=== PATIENT | female | born 1945 | race Caucasian/White ===

== ENCOUNTER 2018-05-15 14:17 | Inpatient (IN) ==
[2018-05-15] MEDS ORDERED: DILTIAZEM 50 MG/10 ML VIAL IV STA ×2 (14:37→15:27)
[2018-05-15] MEDS ORDERED: POTASSIUM CHLORIDE 20 MEQ TABLET PO STA (14:41)
[2018-05-15] MEDS: DILTIAZEM INJ 100 MG in SODIUM CHLORIDE 0.9% 100 ML IV SCH ×2 (14:51→22:34)
[2018-05-15] MEDS ORDERED: SODIUM CHLORIDE 0.9% 1,000 ML IV SCH (15:00)
[2018-05-15] MEDS ORDERED: MAGNESIUM SULF RIDER 2 GM in PREMIX 1 EACH IV ONE (16:45)
[2018-05-15] MEDS ORDERED: MAGNESIUM SULF RIDER 4 GM in PREMIX 1 EACH IV PRN (16:46)
[2018-05-15] MEDS ORDERED: MAGNESIUM SULF RIDER 2 GM in PREMIX 1 EACH IV PRN (16:46)
[2018-05-15] MEDS ORDERED: POTASSIUM CHLORIDE 20 MEQ TABLET PO ONE (16:48)
[2018-05-15] MEDS ORDERED: SODIUM CHLORIDE 0.9% 500 ML IV ONE (16:53)
[2018-05-15] MEDS ORDERED: ACETAMINOPHEN 325 MG TABLET PO PRN (17:08)
[2018-05-15] MEDS ORDERED: ONDANSETRON 4 MG/2 ML VIAL IV PRN (17:08)
[2018-05-15 18:05] LABS: PT Patient Result 10.9 SECS; Partial Thromboplastin Time 32.7 SECS (0-40)
[2018-05-15] MEDS: NICOTINE 21 MG/24 HR PATCH TRANSDERM SCH (18:17)
[2018-05-15] MEDS: PANTOPRAZOLE 40 MG TABLET PO SCH (18:18)
[2018-05-15] MEDS: SODIUM CHLORIDE 0.9% 1,000 ML IV SCH (18:18)
[2018-05-15] MEDS ORDERED: METOPROLOL TARTRATE 5 MG/5 ML VIAL IV ONE (18:20)
[2018-05-15 18:27] LABS: Thyroid Stimulating Hormone 0.39 uIU/ml (0.358-3.74)
[2018-05-15] MEDS: IPRATROPIUM 500 MCG/2.5 ML NEB RESP TX SCH (18:30)
[2018-05-15] MEDS: traMADol 50 MG TABLET PO PRN (20:47)
[2018-05-15] MEDS: ZALEPLON 5 MG CAPSULE PO PRN (20:50)
[2018-05-15] MEDS: ASCORBIC ACID 500 MG TABLET PO SCH (20:50)
[2018-05-15] MEDS: APIXABAN 5 MG TABLET PO SCH (20:50)
[2018-05-15] MEDS: METOPROLOL TARTRATE 50 MG TABLET PO SCH (20:51)
[2018-05-15] MEDS ORDERED: FLUOROURACIL TOP SCH (21:00)
[2018-05-15] MEDS: ALBUTEROL/IPRATROPIUM 3 ML NEB RESP TX PRN (22:55)
[2018-05-16] MEDS: SODIUM CHLORIDE 0.9% 1,000 ML IV SCH ×2 (01:52→06:28)
[2018-05-16] MEDS: POTASSIUM CHLORIDE RIDER 10 MEQ in PREMIX 1 EACH IV PRN ×5 (02:06→06:26)
[2018-05-16] MEDS: ALBUTEROL/IPRATROPIUM 3 ML NEB RESP TX PRN ×3 (03:37→23:00)
[2018-05-16 05:57] LABS: Basophils % 0.6 % (0.0-0.8); Eosinophils # 0.2 10*3/uL (0.0-0.87); Hematocrit 34.2 VOL% (35.7-47.0); Hemoglobin 10.9 GM/DL (12.0-16.0); Immature Granulocytes % 0.4 %; Immature Granulocytes Absolute 0.03 #; Lymphocytes # 1.9 10*3/uL (1.4-4.0); Lymphocytes % 27.7 % (21.3-54.2); Mean Corpuscular HGB Conc 31.9 GM/DL (32-36); Mean Corpuscular Hemoglobin 33 PG (27-34); Mean Platelet Volume 8.9 FL (9.6-12.0); Monocytes # 0.6 10*3/uL (0.11-0.8); Monocytes % 8.3 % (1.7-12.7); Neutrophils # 4.2 10*3/uL (1.4-7.4); Platelet Count 220 T/CUMM (130-400); Red Blood Count 3.29 MC/CUMM (3.8-5.5); Red Cell Distribution Width 15.6 % (9.3-17.3)
[2018-05-16 06:16] LABS: Calcium 7.8 MG/DL (8.5-10.1); Osmolality,Calculated 276.4 MOS/KG (273-304); Potassium 4.7 MMOL/L (3.5-5.1); Risk Ratio 1.41; VLDL CHOLESTEROL 14.6 MG/DL
[2018-05-16] MEDS: IPRATROPIUM 500 MCG/2.5 ML NEB RESP TX SCH ×4 (07:30→19:02)
[2018-05-16] MEDS: APIXABAN 5 MG TABLET PO SCH (08:31)
[2018-05-16] MEDS: ASPIRIN EC 81 MG TABLET PO SCH (08:31)
[2018-05-16] MEDS: PANTOPRAZOLE 40 MG TABLET PO SCH (08:31)
[2018-05-16] MEDS: ASCORBIC ACID 500 MG TABLET PO SCH ×2 (08:32→20:37)
[2018-05-16] MEDS: SIMVASTATIN 80 MG TABLET PO SCH (08:32)
[2018-05-16] MEDS: NICOTINE 21 MG/24 HR PATCH TRANSDERM SCH (08:32)
[2018-05-16] MEDS: METOPROLOL TARTRATE 50 MG TABLET PO SCH ×2 (08:32→20:37)
[2018-05-16] MEDS: FUROSEMIDE 20 MG TABLET PO SCH (13:33)
[2018-05-16 15:05] LABS: Apearance,Urine CLEAR (Clear); Bacteria,Urine Occasional /HPF (Few); Bilirubin,Urine Negative (Negative); Blood, Urine Negative (Negative); Glucose,Urine (UA) Negative (Negative); Hyaline Casts,Urine 1 /LPF (0-3); Ketones,Urine 20 mg/dL (Negative); Mucus,Urine Occasional /LPF (Occasional); Nitrite,Urine Negative (Negative); Protein,Urine 30 MG/DL; RBC,Urine 9 /HPF (0-4); Squamous Epithelial Cell,Urine Occasional /HPF (0-10); Urine Color Amber (Yellow); Urine Specific Gravity 1.024 (1.001-1.035); WBC,Urine 10 /HPF (0-6)
[2018-05-16] MEDS ORDERED: ALBUTEROL 2.5 MG/3 ML NEB RESP TX PRN (19:00)
[2018-05-16] MEDS: ZALEPLON 5 MG CAPSULE PO PRN (20:37)
[2018-05-16] MEDS: CYCLOBENZAPRINE 10 MG TABLET PO PRN (20:37)
[2018-05-17 03:37] LABS: Basophils % 0.4 % (0.0-0.8); Eosinophils # 0.3 10*3/uL (0.0-0.87); Eosinophils % 3.6 % (0.00-10.9); Hematocrit 35.4 VOL% (35.7-47.0); Hemoglobin 11.8 GM/DL (12.0-16.0); Immature Granulocytes % 0.3 %; Immature Granulocytes Absolute 0.02 #; Lymphocytes # 1.7 10*3/uL (1.4-4.0); Lymphocytes % 24.8 % (21.3-54.2); Mean Corpuscular HGB Conc 33.3 GM/DL (32-36); Mean Corpuscular Hemoglobin 34 PG (27-34); Mean Corpuscular Volume 100.9 FL (87-102); Mean Platelet Volume 9.6 FL (9.6-12.0); Monocytes # 0.5 10*3/uL (0.11-0.8); Monocytes % 6.8 % (1.7-12.7); Neutrophils # 4.5 10*3/uL (1.4-7.4); Neutrophils % 64.1 % (38.7-73.9); Platelet Count 233 T/CUMM (130-400); Red Blood Count 3.51 MC/CUMM (3.8-5.5); Red Cell Distribution Width 15.4 % (9.3-17.3)
[2018-05-17 03:54] LABS: Calcium 8.1 MG/DL (8.5-10.1); Osmolality,Calculated 276.4 MOS/KG (273-304); Potassium 4.1 MMOL/L (3.5-5.1)
[2018-05-17] MEDS: IPRATROPIUM 500 MCG/2.5 ML NEB RESP TX SCH ×4 (07:04→19:15)
[2018-05-17] MEDS: ASPIRIN EC 81 MG TABLET PO SCH (08:56)
[2018-05-17] MEDS: NICOTINE 21 MG/24 HR PATCH TRANSDERM SCH (08:56)
[2018-05-17] MEDS: METOPROLOL TARTRATE 50 MG TABLET PO SCH ×2 (08:56→20:24)
[2018-05-17] MEDS: SIMVASTATIN 80 MG TABLET PO SCH (08:56)
[2018-05-17] MEDS: PANTOPRAZOLE 40 MG TABLET PO SCH (08:57)
[2018-05-17] MEDS: FUROSEMIDE 20 MG TABLET PO SCH (08:57)
[2018-05-17] MEDS: ENOXAPARIN 40 MG/0.4 ML SYRINGE SUBCUT SCH (08:57)
[2018-05-17] MEDS: ASCORBIC ACID 500 MG TABLET PO SCH ×2 (08:57→20:23)
[2018-05-17] MEDS: predniSONE 20 MG TABLET PO SCH (09:00)
[2018-05-17] MEDS: BUDESONIDE/FORMOTEROL 80-4.5 INHALER 6.9 GM INH SCH ×2 (10:01→20:27)
[2018-05-17] MEDS: AMPICILLIN 500 MG CAPSULE PO SCH ×3 (13:14→20:25)
[2018-05-17] MEDS: ZALEPLON 5 MG CAPSULE PO PRN (20:23)
[2018-05-17] MEDS: traMADol 50 MG TABLET PO PRN (20:23)
[2018-05-17] MEDS: CYCLOBENZAPRINE 10 MG TABLET PO PRN (20:24)
[2018-05-17] MEDS: ALBUTEROL/IPRATROPIUM 3 ML NEB RESP TX PRN (23:32)
[2018-05-18 02:47] LABS: Basophils % 0.2 % (0.0-0.8); Eosinophils % 0.2 % (0.00-10.9); Hematocrit 33.7 VOL% (35.7-47.0); Immature Granulocytes % 0.6 %; Immature Granulocytes Absolute 0.03 #; Lymphocytes % 19.2 % (21.3-54.2); Mean Corpuscular HGB Conc 32.6 GM/DL (32-36); Mean Corpuscular Hemoglobin 33 PG (27-34); Mean Corpuscular Volume 102.1 FL (87-102); Mean Platelet Volume 10.2 FL (9.6-12.0); Monocytes # 0.3 10*3/uL (0.11-0.8); Neutrophils % 73.8 % (38.7-73.9); Platelet Count 188 T/CUMM (130-400); Red Cell Distribution Width 14.9 % (9.3-17.3); White Blood Count 5.4 T/CUMM (4-12)
[2018-05-18 02:57] LABS: Calcium 7.9 MG/DL (8.5-10.1); Osmolality,Calculated 276.5 MOS/KG (273-304); Potassium 4.1 MMOL/L (3.5-5.1)
[2018-05-18] MEDS: ALBUTEROL/IPRATROPIUM 3 ML NEB RESP TX PRN ×2 (03:51→23:31)
[2018-05-18 04:08] LABS: Macrocytosis 3+; Platelet Estimate Normal
[2018-05-18] MEDS: IPRATROPIUM 500 MCG/2.5 ML NEB RESP TX SCH ×4 (07:36→19:25)
[2018-05-18] MEDS: ASCORBIC ACID 500 MG TABLET PO SCH ×2 (08:46→20:07)
[2018-05-18] MEDS: PANTOPRAZOLE 40 MG TABLET PO SCH (08:47)
[2018-05-18] MEDS: FUROSEMIDE 20 MG TABLET PO SCH (08:47)
[2018-05-18] MEDS: ASPIRIN EC 81 MG TABLET PO SCH (08:47)
[2018-05-18] MEDS: AMPICILLIN 500 MG CAPSULE PO SCH ×4 (08:47→20:06)
[2018-05-18] MEDS: METOPROLOL TARTRATE 50 MG TABLET PO SCH ×2 (08:47→20:07)
[2018-05-18] MEDS: SIMVASTATIN 80 MG TABLET PO SCH (08:47)
[2018-05-18] MEDS: predniSONE 20 MG TABLET PO SCH (08:47)
[2018-05-18] MEDS: ENOXAPARIN 40 MG/0.4 ML SYRINGE SUBCUT SCH (08:48)
[2018-05-18] MEDS: NICOTINE 21 MG/24 HR PATCH TRANSDERM SCH (08:48)
[2018-05-18] MEDS: BUDESONIDE/FORMOTEROL 80-4.5 INHALER 6.9 GM INH SCH ×2 (08:54→21:41)
[2018-05-18] MEDS: CYCLOBENZAPRINE 10 MG TABLET PO PRN (20:07)
[2018-05-19 04:10] LABS: Hematocrit 32.4 VOL% (35.7-47.0); Hemoglobin 10.7 GM/DL (12.0-16.0); Immature Granulocytes % 0.4 %; Immature Granulocytes Absolute 0.02 #; Lymphocytes # 1.4 10*3/uL (1.4-4.0); Lymphocytes % 26.9 % (21.3-54.2); Mean Corpuscular Hemoglobin 33 PG (27-34); Mean Platelet Volume 9.1 FL (9.6-12.0); Monocytes # 0.4 10*3/uL (0.11-0.8); Monocytes % 8.4 % (1.7-12.7); Neutrophils # 3.2 10*3/uL (1.4-7.4); Neutrophils % 64.3 % (38.7-73.9); Platelet Count 213 T/CUMM (130-400); Red Blood Count 3.24 MC/CUMM (3.8-5.5); Red Cell Distribution Width 14.9 % (9.3-17.3)
[2018-05-19] MEDS: IPRATROPIUM 500 MCG/2.5 ML NEB RESP TX SCH ×2 (07:33→11:25)
[2018-05-19] MEDS: BUDESONIDE/FORMOTEROL 80-4.5 INHALER 6.9 GM INH SCH (09:22)
[2018-05-19] MEDS: NICOTINE 21 MG/24 HR PATCH TRANSDERM SCH (09:23)
[2018-05-19] MEDS: ENOXAPARIN 40 MG/0.4 ML SYRINGE SUBCUT SCH (09:23)
[2018-05-19] MEDS: AMPICILLIN 500 MG CAPSULE PO SCH ×2 (09:24→13:55)
[2018-05-19] MEDS: predniSONE 20 MG TABLET PO SCH (09:24)
[2018-05-19] MEDS: ASPIRIN EC 81 MG TABLET PO SCH (09:24)
[2018-05-19] MEDS: FUROSEMIDE 20 MG TABLET PO SCH (09:24)
[2018-05-19] MEDS: METOPROLOL TARTRATE 50 MG TABLET PO SCH (09:24)
[2018-05-19] MEDS: ASCORBIC ACID 500 MG TABLET PO SCH (09:24)
[2018-05-19] MEDS: SIMVASTATIN 80 MG TABLET PO SCH (09:24)
[2018-05-19] MEDS: PANTOPRAZOLE 40 MG TABLET PO SCH (09:24)
[2018-05-19] MEDS ORDERED: DILTIAZEM CD 120 MG CAPSULE PO SCH (10:30)
[2018-05-19 12:27] VITALS: BP 132/81
== END 2018-05-19 14:38 | disposition home or self-care (01) | DRG 309 ==
LOC: EDBD → EDUNIT# → N.ED 14:17 → SUATTDRO 15:56 → N.EDINP 15:56 → N.TELES 16:25
PROVIDERS: ADMIT Internal Medicine; ATTEND Family Medicine

== ENCOUNTER 2019-03-23 21:22 | Inpatient (IN) ==
[2019-03-23] MEDS ORDERED: SODIUM CHLORIDE 0.9% 1,000 ML IV STA (21:55)
[2019-03-23 22:41] LABS: Basophils # 0.1 10*3/uL (0.0-0.2); Basophils % 0.3 % (0.0-0.8); Eosinophils # 0.1 10*3/uL (0.0-0.87); Eosinophils % 0.4 % (0.00-10.9); Hematocrit 41.2 VOL% (35.7-47.0); Hemoglobin 12.9 GM/DL (12.0-16.0); Immature Granulocytes % 1.5 %; Immature Granulocytes Absolute 0.23 #; Lymphocytes # 0.8 10*3/uL (1.4-4.0); Lymphocytes % 4.9 % (21.3-54.2); Mean Corpuscular HGB Conc 31.3 GM/DL (32-36); Mean Corpuscular Volume 90.9 FL (87-102); Mean Platelet Volume 9.4 FL (9.6-12.0); Monocytes % 3.2 % (1.7-12.7); Neutrophils % 89.7 % (38.7-73.9); Platelet Count 166 T/CUMM (130-400); Red Blood Count 4.53 MC/CUMM (3.8-5.5); Red Cell Distribution Width 13.8 % (9.3-17.3); White Blood Count 15.6 T/CUMM (4-12)
[2019-03-23 23:09] LABS: Band Neutrophils 3 % (0-10); Eosinophils 1 % (0-10); Lymphocytes 6 % (20-55); Segmented Neutrophils 88 % (50-85); Total Cells Counted 100
[2019-03-23 23:10] LABS: Anisocytosis Slight; Microcytosis Slight; Platelet Estimate Normal
[2019-03-23 23:16] LABS: Albumin 2.9 G/DL (3.4-5.0); Bilirubin,Total 0.6 MG/DL (0.2-1.0); Calcium 8.4 MG/DL (8.5-10.1); Osmolality,Calculated 283.4 MOS/KG (273-304); Total Protein 5.5 G/DL (6.4-8.3)
[2019-03-24] MEDS ORDERED: methylPREDNISolone SOD SUC 125 MG/2 ML VIAL IV STA (00:45)
[2019-03-24] MEDS ORDERED: ALBUTEROL/IPRATROPIUM 3 ML NEB RESP TX STA (00:45)
[2019-03-24 01:34] LABS: ABG Base Excess 7.5 MMOL/L (-2.5-2.5); ABG HCO3 33.9 MMOL/L (20-26); ABG Oxygen Saturation 95.8 % (95-100); ABG PCO2 56.1 MM HG (35-48); ABG PH 7.399 (7.35-7.45); ABG PO2 82.4 MM HG (80-95); ABG TCO2 35.6 MMOL/L (23-27)
[2019-03-24] MEDS ORDERED: GLUCAGON 1 MG VIAL IM PRN (01:51)
[2019-03-24] MEDS ORDERED: BISACODYL 5 MG TABLET PO PRN (01:51)
[2019-03-24] MEDS ORDERED: guaiFENesin/DM ER 600-30 MG TABLET PO PRN (01:51)
[2019-03-24] MEDS ORDERED: diphenhydrAMINE CAP 25 MG CAPSULE PO PRN (01:51)
[2019-03-24] MEDS ORDERED: ACETAMINOPHEN 325 MG TABLET PO PRN (01:51)
[2019-03-24] MEDS ORDERED: ONDANSETRON 4 MG/2 ML VIAL IV PRN (01:51)
[2019-03-24] MEDS ORDERED: NICOTINE 21 MG/24 HR PATCH TRANSDERM PRN (01:51)
[2019-03-24] MEDS ORDERED: DEXTROSE 50% 25 GM/50 ML VIAL IV PRN (01:51)
[2019-03-24] MEDS ORDERED: METOPROLOL TARTRATE 50 MG TABLET PO SCH (02:57)
[2019-03-24] MEDS: FUROSEMIDE 40 MG/4 ML VIAL IV SCH ×3 (03:03→15:02)
[2019-03-24] MEDS: LEVOFLOXACIN INJ 750 MG in PREMIX 1 EACH IV SCH (03:05)
[2019-03-24] MEDS: ATENOLOL 50 MG TABLET PO SCH ×2 (05:40→21:15)
[2019-03-24 05:45] LABS: Basophils % 0.2 % (0.0-0.8); Eosinophils % 0.1 % (0.00-10.9); Hematocrit 40.8 VOL% (35.7-47.0); Hemoglobin 12.7 GM/DL (12.0-16.0); Immature Granulocytes % 0.9 %; Immature Granulocytes Absolute 0.11 #; Lymphocytes # 0.3 10*3/uL (1.4-4.0); Lymphocytes % 2.4 % (21.3-54.2); Mean Corpuscular HGB Conc 31.1 GM/DL (32-36); Mean Corpuscular Volume 90.5 FL (87-102); Mean Platelet Volume 10.1 FL (9.6-12.0); Monocytes % 1.5 % (1.7-12.7); Neutrophils % 94.9 % (38.7-73.9); Platelet Count 168 T/CUMM (130-400); Red Blood Count 4.51 MC/CUMM (3.8-5.5); White Blood Count 12.8 T/CUMM (4-12)
[2019-03-24 06:14] LABS: Lymphocytes 3 % (20-55); Platelet Estimate Adequate; Segmented Neutrophils 94 % (50-85); Total Cells Counted 100
[2019-03-24 06:25] LABS: Albumin 2.9 G/DL (3.4-5.0); Bilirubin,Total 0.8 MG/DL (0.2-1.0); Calcium 8.5 MG/DL (8.5-10.1); Osmolality,Calculated 290.7 MOS/KG (273-304); Total Protein 6.3 G/DL (6.4-8.3)
[2019-03-24] MEDS: ALBUTEROL/IPRATROPIUM 3 ML NEB RESP TX SCH ×3 (07:33→19:01)
[2019-03-24] MEDS: PANTOPRAZOLE 40 MG TABLET PO SCH (08:30)
[2019-03-24] MEDS: DILTIAZEM CD 120 MG CAPSULE PO SCH (08:30)
[2019-03-24] MEDS: GABAPENTIN 100 MG CAPSULE PO SCH ×3 (08:30→21:14)
[2019-03-24] MEDS: INSULIN REGULAR 100 UNIT/ML SUBCUT SCH ×4 (08:31→21:14)
[2019-03-24] MEDS ORDERED: methylPREDNISolone SOD SUC 40 MG/1 ML VIAL IV SCH (09:00)
[2019-03-24] MEDS ORDERED: TIOTROPIUM BROMIDE INH SCH (09:00)
[2019-03-24] MEDS ORDERED: ASPIRIN EC 81 MG TABLET PO SCH (09:00)
[2019-03-24] MEDS: ASPIRIN CHEW 81 MG TABLET PO SCH (16:21)
[2019-03-24] MEDS ORDERED: ENOXAPARIN 80 MG/0.8 ML SYRINGE SUBCUT ONE (16:26)
[2019-03-24] MEDS: methylPREDNISolone SOD SUC 40 MG/1 ML VIAL IV SCH (17:30)
[2019-03-24] MEDS: SIMVASTATIN 40 MG TABLET PO SCH (21:13)
[2019-03-24] MEDS: ENOXAPARIN 80 MG/0.8 ML SYRINGE SUBCUT SCH (21:15)
[2019-03-25] MEDS: ALBUTEROL/IPRATROPIUM 3 ML NEB RESP TX SCH ×4 (01:00→19:00)
[2019-03-25] MEDS: methylPREDNISolone SOD SUC 40 MG/1 ML VIAL IV SCH ×3 (01:08→18:25)
[2019-03-25] MEDS: LEVOFLOXACIN INJ 750 MG in PREMIX 1 EACH IV SCH (01:10)
[2019-03-25 04:49] LABS: Basophils % 0.2 % (0.0-0.8); Hematocrit 40.1 VOL% (35.7-47.0); Hemoglobin 12.3 GM/DL (12.0-16.0); Immature Granulocytes % 1.1 %; Immature Granulocytes Absolute 0.14 #; Lymphocytes # 0.7 10*3/uL (1.4-4.0); Lymphocytes % 5.3 % (21.3-54.2); Mean Corpuscular HGB Conc 30.7 GM/DL (32-36); Mean Corpuscular Volume 91.1 FL (87-102); Mean Platelet Volume 9.8 FL (9.6-12.0); Monocytes % 2.3 % (1.7-12.7); Neutrophils % 91.1 % (38.7-73.9); Platelet Count 175 T/CUMM (130-400); Red Cell Distribution Width 13.7 % (9.3-17.3); White Blood Count 12.7 T/CUMM (4-12)
[2019-03-25 05:14] LABS: Calcium 9.2 MG/DL (8.5-10.1); Osmolality,Calculated 291.5 MOS/KG (273-304)
[2019-03-25 05:39] LABS: Band Neutrophils 2 % (0-10); Lymphocytes 4 % (20-55); Platelet Estimate Adequate; Segmented Neutrophils 92 % (50-85); Total Cells Counted 100
[2019-03-25] MEDS ORDERED: SODIUM CHLORIDE 0.9% 1,000 ML IV SCH ×2 (08:00→16:39)
[2019-03-25] MEDS: ENOXAPARIN 80 MG/0.8 ML SYRINGE SUBCUT SCH ×2 (08:49→10:37)
[2019-03-25] MEDS: INSULIN REGULAR 100 UNIT/ML SUBCUT SCH ×4 (08:49→21:46)
[2019-03-25] MEDS: DILTIAZEM CD 120 MG CAPSULE PO SCH (08:50)
[2019-03-25] MEDS: GABAPENTIN 100 MG CAPSULE PO SCH ×3 (08:50→22:03)
[2019-03-25] MEDS: PANTOPRAZOLE 40 MG TABLET PO SCH (08:50)
[2019-03-25] MEDS: ASPIRIN CHEW 81 MG TABLET PO SCH (08:50)
[2019-03-25] MEDS: ATENOLOL 50 MG TABLET PO SCH ×2 (08:50→22:03)
[2019-03-25] MEDS ORDERED: POTASSIUM CHLORIDE 20 MEQ/15 ML UDCUP PO ONE (13:11)
[2019-03-25] MEDS ORDERED: LIDOCAINE 1% 20 ML VIAL ONE (14:36)
[2019-03-25] MEDS ORDERED: diphenhydrAMINE 50 MG/1 ML VIAL ONE (14:38)
[2019-03-25] MEDS ORDERED: TIROFIBAN 5,000 MCG/100 ML PREMIX IV ONE (15:16)
[2019-03-25] MEDS ORDERED: HEPARIN 5,000 UNIT/1 ML VIAL ONE (15:21)
[2019-03-25] MEDS ORDERED: TIROFIBAN 5,000 MCG/100 ML PREMIX IV SCH (15:25)
[2019-03-25] MEDS ORDERED: TICAGRELOR 90 MG TABLET ONE (16:11)
[2019-03-25] MEDS: MORPHINE 4 MG/1 ML VIAL IV PRN ×2 (18:55→22:55)
[2019-03-25 18:58] LABS: Troponin I < 0.015 NG/ML (0.00-0.045)
[2019-03-25] MEDS: SIMVASTATIN 40 MG TABLET PO SCH (22:03)
[2019-03-25] MEDS: TICAGRELOR 90 MG TABLET PO SCH (22:03)
[2019-03-26] MEDS: ALBUTEROL/IPRATROPIUM 3 ML NEB RESP TX SCH ×4 (00:05→19:05)
[2019-03-26 01:09] LABS: Troponin I < 0.015 NG/ML (0.00-0.045)
[2019-03-26] MEDS: methylPREDNISolone SOD SUC 40 MG/1 ML VIAL IV SCH ×3 (02:26→16:37)
[2019-03-26] MEDS: LEVOFLOXACIN INJ 750 MG in PREMIX 1 EACH IV SCH (02:26)
[2019-03-26] MEDS: MORPHINE 4 MG/1 ML VIAL IV PRN (04:18)
[2019-03-26 04:52] LABS: Basophils % 0.2 % (0.0-0.8); Hematocrit 38.1 VOL% (35.7-47.0); Hemoglobin 11.8 GM/DL (12.0-16.0); Immature Granulocytes % 2.2 %; Immature Granulocytes Absolute 0.35 #; Lymphocytes # 0.6 10*3/uL (1.4-4.0); Lymphocytes % 3.6 % (21.3-54.2); Mean Corpuscular Volume 90.1 FL (87-102); Mean Platelet Volume 9.5 FL (9.6-12.0); Monocytes % 3.2 % (1.7-12.7); Neutrophils % 90.8 % (38.7-73.9); Platelet Count 175 T/CUMM (130-400); Red Blood Count 4.23 MC/CUMM (3.8-5.5); Red Cell Distribution Width 13.8 % (9.3-17.3)
[2019-03-26 05:22] LABS: Risk Ratio 2.93; VLDL CHOLESTEROL 42.6 MG/DL
[2019-03-26 05:26] LABS: Albumin 2.8 G/DL (3.4-5.0); Bilirubin,Total 1.1 MG/DL (0.2-1.0); Osmolality,Calculated 287.4 MOS/KG (273-304); Total Protein 5.9 G/DL (6.4-8.3)
[2019-03-26 05:47] LABS: Anisocytosis Slight; Eosinophils 1 % (0-10); Lymphocytes 3 % (20-55); Platelet Estimate Adequate; Segmented Neutrophils 91 % (50-85); Total Cells Counted 100
[2019-03-26] MEDS ORDERED: ASPIRIN CHEW 81 MG TABLET PO SCH (09:00)
[2019-03-26] MEDS ORDERED: ASPIRIN EC 81 MG TABLET PO SCH (09:00)
[2019-03-26 09:07] LABS: Troponin I 0.018 NG/ML (0.00-0.045)
[2019-03-26] MEDS: INSULIN REGULAR 100 UNIT/ML SUBCUT SCH ×4 (09:07→21:30)
[2019-03-26] MEDS: DILTIAZEM CD 120 MG CAPSULE PO SCH (09:08)
[2019-03-26] MEDS: TICAGRELOR 90 MG TABLET PO SCH (09:08)
[2019-03-26] MEDS: PANTOPRAZOLE 40 MG TABLET PO SCH ×2 (09:08→21:30)
[2019-03-26] MEDS: ATENOLOL 50 MG TABLET PO SCH (09:08)
[2019-03-26] MEDS: ASPIRIN CHEW 81 MG TABLET PO SCH (09:08)
[2019-03-26] MEDS: GABAPENTIN 100 MG CAPSULE PO SCH ×3 (09:08→21:30)
[2019-03-26] MEDS ORDERED: TUBERCULIN SKIN TEST 0.1 ML SYRINGE INTRADERM ONE (14:17)
[2019-03-26] MEDS ORDERED: CLOPIDOGREL 300 MG TABLET PO ONE (14:26)
[2019-03-26] MEDS ORDERED: POTASSIUM CHLORIDE 20 MEQ PACK PO ONE (15:33)
[2019-03-26] MEDS: ACETAMINOPHEN 325 MG TABLET PO SCH ×2 (16:26→21:30)
[2019-03-26] MEDS: CARVEDILOL 12.5 MG TABLET PO SCH (21:30)
[2019-03-26] MEDS: SIMVASTATIN 40 MG TABLET PO SCH (21:30)
[2019-03-27] MEDS: methylPREDNISolone SOD SUC 40 MG/1 ML VIAL IV SCH ×3 (00:20→16:53)
[2019-03-27] MEDS: ALBUTEROL/IPRATROPIUM 3 ML NEB RESP TX SCH ×4 (01:02→19:57)
[2019-03-27 01:04] LABS: Albumin 2.7 G/DL (3.4-5.0); Bilirubin,Total 0.8 MG/DL (0.2-1.0); Calcium 8.8 MG/DL (8.5-10.1); Osmolality,Calculated 300.1 MOS/KG (273-304); Total Protein 5.4 G/DL (6.4-8.3)
[2019-03-27] MEDS ORDERED: SODIUM CHLORIDE 0.9% 500 ML IV ONE ×2 (01:20→09:36)
[2019-03-27] MEDS ORDERED: FUROSEMIDE 40 MG/4 ML VIAL IV ONE (01:20)
[2019-03-27] MEDS: LEVOFLOXACIN INJ 750 MG in PREMIX 1 EACH IV SCH (03:20)
[2019-03-27 04:53] LABS: Basophils % 0.1 % (0.0-0.8); Hematocrit 31.3 VOL% (35.7-47.0); Immature Granulocytes % 1.5 %; Immature Granulocytes Absolute 0.21 #; Lymphocytes # 0.8 10*3/uL (1.4-4.0); Lymphocytes % 5.6 % (21.3-54.2); Mean Corpuscular HGB Conc 31.9 GM/DL (32-36); Mean Corpuscular Volume 88.9 FL (87-102); Mean Platelet Volume 9.9 FL (9.6-12.0); Neutrophils % 89.8 % (38.7-73.9); Platelet Count 160 T/CUMM (130-400); Red Blood Count 3.52 MC/CUMM (3.8-5.5); Red Cell Distribution Width 14.2 % (9.3-17.3); White Blood Count 14.4 T/CUMM (4-12)
[2019-03-27 05:12] LABS: Calcium 8.1 MG/DL (8.5-10.1); Osmolality,Calculated 304.1 MOS/KG (273-304)
[2019-03-27] MEDS: CLOPIDOGREL 75 MG TABLET PO SCH (08:42)
[2019-03-27] MEDS: PANTOPRAZOLE 40 MG TABLET PO SCH ×2 (08:42→21:27)
[2019-03-27] MEDS: GABAPENTIN 100 MG CAPSULE PO SCH ×3 (08:42→21:27)
[2019-03-27] MEDS: INSULIN REGULAR 100 UNIT/ML SUBCUT SCH ×4 (08:42→21:30)
[2019-03-27] MEDS: ASPIRIN CHEW 81 MG TABLET PO SCH (08:42)
[2019-03-27] MEDS: ACETAMINOPHEN 325 MG TABLET PO SCH ×2 (08:42→21:27)
[2019-03-27] MEDS: CARVEDILOL 12.5 MG TABLET PO SCH ×2 (09:09→21:26)
[2019-03-27] MEDS: DILTIAZEM CD 120 MG CAPSULE PO SCH (09:09)
[2019-03-27] MEDS ORDERED: ALBUTEROL/IPRATROPIUM 3 ML NEB RESP TX ONE (09:32)
[2019-03-27] MEDS: metFORMIN 500 MG TABLET PO SCH (16:52)
[2019-03-27] MEDS: SIMVASTATIN 40 MG TABLET PO SCH (21:27)
[2019-03-28] MEDS: methylPREDNISolone SOD SUC 40 MG/1 ML VIAL IV SCH ×3 (01:28→17:19)
[2019-03-28] MEDS: LEVOFLOXACIN INJ 750 MG in PREMIX 1 EACH IV SCH (01:56)
[2019-03-28] MEDS: ALBUTEROL/IPRATROPIUM 3 ML NEB RESP TX SCH ×4 (02:30→19:30)
[2019-03-28] MEDS: MORPHINE 4 MG/1 ML VIAL IV PRN (03:01)
[2019-03-28 08:52] LABS: Basophils % 0.1 % (0.0-0.8); Hemoglobin 9.4 GM/DL (12.0-16.0); Immature Granulocytes Absolute 0.11 #; Lymphocytes # 0.6 10*3/uL (1.4-4.0); Lymphocytes % 5.2 % (21.3-54.2); Mean Corpuscular HGB Conc 31.3 GM/DL (32-36); Mean Corpuscular Volume 89.6 FL (87-102); Mean Platelet Volume 9.5 FL (9.6-12.0); Monocytes % 2.2 % (1.7-12.7); Neutrophils % 91.5 % (38.7-73.9); Platelet Count 148 T/CUMM (130-400); Red Blood Count 3.35 MC/CUMM (3.8-5.5); Red Cell Distribution Width 14.2 % (9.3-17.3); White Blood Count 10.7 T/CUMM (4-12)
[2019-03-28] MEDS: INSULIN REGULAR 100 UNIT/ML SUBCUT SCH ×4 (08:59→21:12)
[2019-03-28] MEDS: CARVEDILOL 12.5 MG TABLET PO SCH ×2 (09:04→21:10)
[2019-03-28] MEDS: DILTIAZEM CD 120 MG CAPSULE PO SCH (09:04)
[2019-03-28] MEDS: CLOPIDOGREL 75 MG TABLET PO SCH (09:04)
[2019-03-28] MEDS: ASPIRIN CHEW 81 MG TABLET PO SCH (09:04)
[2019-03-28] MEDS: metFORMIN 500 MG TABLET PO SCH (09:05)
[2019-03-28] MEDS: GABAPENTIN 100 MG CAPSULE PO SCH ×3 (09:05→21:11)
[2019-03-28] MEDS: PANTOPRAZOLE 40 MG TABLET PO SCH ×2 (09:05→21:11)
[2019-03-28] MEDS: ACETAMINOPHEN 325 MG TABLET PO SCH ×2 (09:06→21:11)
[2019-03-28 09:11] LABS: Calcium 8.3 MG/DL (8.5-10.1); Osmolality,Calculated 303.3 MOS/KG (273-304)
[2019-03-28 09:14] LABS: Hypochromasia Slight; Lymphocytes 5 % (20-55); Microcytosis 1+; Segmented Neutrophils 94 % (50-85); Total Cells Counted 100
[2019-03-28 09:15] LABS: Platelet Estimate Adequate
[2019-03-28] MEDS: SIMVASTATIN 40 MG TABLET PO SCH (21:10)
[2019-03-29] MEDS: methylPREDNISolone SOD SUC 40 MG/1 ML VIAL IV SCH ×3 (01:28→16:15)
[2019-03-29] MEDS: ALBUTEROL/IPRATROPIUM 3 ML NEB RESP TX SCH ×4 (01:29→18:59)
[2019-03-29] MEDS: LEVOFLOXACIN INJ 750 MG in PREMIX 1 EACH IV SCH (01:30)
[2019-03-29 05:17] LABS: Basophils % 0.1 % (0.0-0.8); Hematocrit 31.1 VOL% (35.7-47.0); Hemoglobin 9.9 GM/DL (12.0-16.0); Immature Granulocytes % 1.6 %; Immature Granulocytes Absolute 0.17 #; Lymphocytes # 0.7 10*3/uL (1.4-4.0); Lymphocytes % 6.4 % (21.3-54.2); Mean Corpuscular HGB Conc 31.8 GM/DL (32-36); Mean Corpuscular Volume 89.1 FL (87-102); Mean Platelet Volume 9.9 FL (9.6-12.0); Monocytes % 3.1 % (1.7-12.7); Neutrophils % 88.8 % (38.7-73.9); Platelet Count 179 T/CUMM (130-400); Red Blood Count 3.49 MC/CUMM (3.8-5.5); Red Cell Distribution Width 14.2 % (9.3-17.3); White Blood Count 10.7 T/CUMM (4-12)
[2019-03-29 05:24] LABS: Calcium 8.5 MG/DL (8.5-10.1); Osmolality,Calculated 295.4 MOS/KG (273-304)
[2019-03-29] MEDS: INSULIN REGULAR 100 UNIT/ML SUBCUT SCH ×4 (07:49→20:28)
[2019-03-29] MEDS: SODIUM CHLORIDE 0.45% 1,000 ML IV SCH (10:08)
[2019-03-29] MEDS: CARVEDILOL 12.5 MG TABLET PO SCH ×2 (10:09→20:19)
[2019-03-29] MEDS: DILTIAZEM CD 120 MG CAPSULE PO SCH (10:09)
[2019-03-29] MEDS: CLOPIDOGREL 75 MG TABLET PO SCH (10:10)
[2019-03-29] MEDS: ACETAMINOPHEN 325 MG TABLET PO SCH ×2 (10:10→20:30)
[2019-03-29] MEDS: GABAPENTIN 100 MG CAPSULE PO SCH ×3 (10:10→20:29)
[2019-03-29] MEDS: PANTOPRAZOLE 40 MG TABLET PO SCH ×2 (10:10→20:28)
[2019-03-29] MEDS: ASPIRIN CHEW 81 MG TABLET PO SCH (10:10)
[2019-03-29] MEDS: SIMVASTATIN 40 MG TABLET PO SCH (20:28)
[2019-03-30] MEDS: ALBUTEROL/IPRATROPIUM 3 ML NEB RESP TX SCH ×3 (01:06→12:54)
[2019-03-30] MEDS: methylPREDNISolone SOD SUC 40 MG/1 ML VIAL IV SCH ×3 (01:32→16:32)
[2019-03-30] MEDS: LEVOFLOXACIN INJ 750 MG in PREMIX 1 EACH IV SCH (01:35)
[2019-03-30 04:36] LABS: Basophils % 0.1 % (0.0-0.8); Hematocrit 29.3 VOL% (35.7-47.0); Hemoglobin 9.3 GM/DL (12.0-16.0); Immature Granulocytes % 1.5 %; Immature Granulocytes Absolute 0.16 #; Lymphocytes # 0.7 10*3/uL (1.4-4.0); Lymphocytes % 7.1 % (21.3-54.2); Mean Corpuscular HGB Conc 31.7 GM/DL (32-36); Mean Corpuscular Volume 89.6 FL (87-102); Mean Platelet Volume 9.7 FL (9.6-12.0); Neutrophils % 87.3 % (38.7-73.9); Platelet Count 170 T/CUMM (130-400); Red Blood Count 3.27 MC/CUMM (3.8-5.5); Red Cell Distribution Width 14.2 % (9.3-17.3); White Blood Count 10.4 T/CUMM (4-12)
[2019-03-30 04:45] LABS: Calcium 8.4 MG/DL (8.5-10.1); Osmolality,Calculated 290.5 MOS/KG (273-304)
[2019-03-30] MEDS: MORPHINE 4 MG/1 ML VIAL IV PRN (04:54)
[2019-03-30] MEDS: SODIUM CHLORIDE 0.45% 1,000 ML IV SCH (05:02)
[2019-03-30] MEDS: ASPIRIN CHEW 81 MG TABLET PO SCH (09:37)
[2019-03-30] MEDS: GABAPENTIN 100 MG CAPSULE PO SCH ×2 (09:37→17:14)
[2019-03-30] MEDS: DILTIAZEM CD 120 MG CAPSULE PO SCH (09:37)
[2019-03-30] MEDS: PANTOPRAZOLE 40 MG TABLET PO SCH (09:37)
[2019-03-30] MEDS: CARVEDILOL 12.5 MG TABLET PO SCH (09:37)
[2019-03-30] MEDS: CLOPIDOGREL 75 MG TABLET PO SCH (09:37)
[2019-03-30] MEDS: INSULIN REGULAR 100 UNIT/ML SUBCUT SCH ×3 (09:38→17:14)
[2019-03-30] MEDS: ACETAMINOPHEN 325 MG TABLET PO SCH (09:38)
[2019-03-30] MEDS ORDERED: TUBERCULIN SKIN TEST 0.1 ML SYRINGE INTRADERM ONE (14:00)
[2019-03-30 15:28] VITALS: BP 126/71
== END 2019-03-30 18:18 | disposition swing bed (61) | DRG 246 ==
LOC: EDBD → EDSEX → EDUNIT# → N.ED 21:22 → SUATTDRO 03-24 01:51 → N.EDINP 03-24 01:51 → N.5E 03-24 02:11 → N.TELES 03-25 17:40
PROVIDERS: ADMIT Internal Medicine; ATTEND Internal Medicine
PROC: CLCCHCL (ICD-10-PCS; 2019-03-25 14:15)

== ENCOUNTER 2019-04-24 14:29 | Inpatient (IN) ==
[2019-04-24] MEDS ORDERED: ONDANSETRON 4 MG/2 ML VIAL IV PRN (19:24)
[2019-04-24] MEDS ORDERED: DEXTROSE 50% 25 GM/50 ML VIAL IV PRN (19:24)
[2019-04-24] MEDS ORDERED: GLUCAGON 1 MG VIAL IM PRN (19:24)
[2019-04-24] MEDS ORDERED: SODIUM CHLORIDE 0.45% 1,000 ML IV SCH (19:30)
[2019-04-24] MEDS ORDERED: diphenhydrAMINE CAP 25 MG CAPSULE PO PRN (19:36)
[2019-04-24] MEDS ORDERED: BISACODYL 5 MG TABLET PO PRN (19:36)
[2019-04-24] MEDS ORDERED: CYCLOBENZAPRINE 10 MG TABLET PO PRN (19:36)
[2019-04-24] MEDS ORDERED: NITROGLYCERIN SL 0.4 MG TABLET SL PRN (19:36)
[2019-04-24] MEDS ORDERED: TIOTROPIUM BROMIDE INH SCH (21:00)
[2019-04-24] MEDS ORDERED: NON-FORMULARY MEDICATION (Albuterol Sulfate [Proair Hfa] 2 PUFF) INH SCH (21:00)
[2019-04-24] MEDS: SIMVASTATIN 80 MG TABLET PO SCH (22:00)
[2019-04-24] MEDS: GABAPENTIN 100 MG CAPSULE PO SCH (22:00)
[2019-04-24] MEDS: CARVEDILOL 25 MG TABLET PO SCH (22:00)
[2019-04-24] MEDS: MONTELUKAST 10 MG TABLET PO SCH (22:00)
[2019-04-24] MEDS: POTASSIUM CHLORIDE 20 MEQ PACK PO SCH (22:00)
[2019-04-24] MEDS: THEOPHYLLINE ER 300 MG TABLET PO SCH (22:00)
[2019-04-24] MEDS: ASCORBIC ACID 500 MG TABLET PO SCH (22:00)
[2019-04-24] MEDS: FLUOROURACIL TOP SCH (22:01)
[2019-04-24] MEDS: INSULIN LISPRO 100 UNIT/ML SUBCUT SCH (22:01)
[2019-04-25] MEDS: ALBUTEROL/IPRATROPIUM 3 ML NEB RESP TX SCH ×4 (00:38→19:31)
[2019-04-25 05:44] LABS: Basophils % 0.3 % (0.0-0.8); Eosinophils # 0.1 10*3/uL (0.0-0.87); Eosinophils % 1.4 % (0.00-10.9); Hematocrit 30.6 VOL% (35.7-47.0); Hemoglobin 9.1 GM/DL (12.0-16.0); Immature Granulocytes % 0.5 %; Immature Granulocytes Absolute 0.04 #; Lymphocytes # 1.6 10*3/uL (1.4-4.0); Lymphocytes % 20.2 % (21.3-54.2); Mean Corpuscular HGB Conc 29.7 GM/DL (32-36); Mean Platelet Volume 8.7 FL (9.6-12.0); Neutrophils % 70.6 % (38.7-73.9); Platelet Count 221 T/CUMM (130-400); Red Blood Count 3.22 MC/CUMM (3.8-5.5); Red Cell Distribution Width 15.8 % (9.3-17.3); White Blood Count 7.7 T/CUMM (4-12)
[2019-04-25 05:50] LABS: Albumin 2.4 G/DL (3.4-5.0); Bilirubin,Total 1.2 MG/DL (0.2-1.0); Calcium 8.9 MG/DL (8.5-10.1); Total Protein 5.1 G/DL (6.4-8.3)
[2019-04-25] MEDS: INSULIN LISPRO 100 UNIT/ML SUBCUT SCH ×4 (09:53→21:06)
[2019-04-25] MEDS: PANTOPRAZOLE 40 MG TABLET PO SCH (10:22)
[2019-04-25] MEDS: GABAPENTIN 100 MG CAPSULE PO SCH ×3 (10:22→21:04)
[2019-04-25] MEDS: ASCORBIC ACID 500 MG TABLET PO SCH ×2 (10:22→21:04)
[2019-04-25] MEDS: THEOPHYLLINE ER 300 MG TABLET PO SCH ×2 (10:22→21:04)
[2019-04-25] MEDS: POTASSIUM CHLORIDE 20 MEQ PACK PO SCH ×2 (10:23→21:05)
[2019-04-25] MEDS: MONTELUKAST 10 MG TABLET PO SCH ×2 (10:23→21:04)
[2019-04-25] MEDS: FUROSEMIDE 20 MG TABLET PO SCH (10:23)
[2019-04-25] MEDS: predniSONE 5 MG TABLET PO SCH (10:23)
[2019-04-25] MEDS: DILTIAZEM CD 120 MG CAPSULE PO SCH (10:24)
[2019-04-25] MEDS: CLOPIDOGREL 75 MG TABLET PO SCH (10:24)
[2019-04-25] MEDS: CARVEDILOL 25 MG TABLET PO SCH ×2 (10:24→21:04)
[2019-04-25] MEDS: ASPIRIN EC 81 MG TABLET PO SCH (10:24)
[2019-04-25] MEDS: BISACODYL 10 MG SUPP RECTAL SCH ×2 (10:25→21:05)
[2019-04-25] MEDS: FLUOROURACIL TOP SCH ×2 (10:25→21:05)
[2019-04-25] MEDS: PIPERACILLIN/TAZOBACTAM 3,375 MG in SODIUM CHLORIDE 0.9% 100 ML IV SCH (17:06)
[2019-04-25] MEDS: SIMVASTATIN 80 MG TABLET PO SCH (21:04)
[2019-04-26] MEDS: PIPERACILLIN/TAZOBACTAM 3,375 MG in SODIUM CHLORIDE 0.9% 100 ML IV SCH ×4 (00:33→23:32)
[2019-04-26] MEDS: ALBUTEROL/IPRATROPIUM 3 ML NEB RESP TX SCH ×4 (01:01→19:19)
[2019-04-26 05:04] LABS: Basophils % 0.3 % (0.0-0.8); Eosinophils # 0.1 10*3/uL (0.0-0.87); Eosinophils % 2.2 % (0.00-10.9); Hematocrit 29.3 VOL% (35.7-47.0); Hemoglobin 8.8 GM/DL (12.0-16.0); Immature Granulocytes % 0.8 %; Immature Granulocytes Absolute 0.05 #; Lymphocytes # 1.5 10*3/uL (1.4-4.0); Lymphocytes % 25.4 % (21.3-54.2); Mean Corpuscular Volume 93.9 FL (87-102); Monocytes % 8.1 % (1.7-12.7); Neutrophils % 63.2 % (38.7-73.9); Platelet Count 241 T/CUMM (130-400); Red Blood Count 3.12 MC/CUMM (3.8-5.5); Red Cell Distribution Width 15.7 % (9.3-17.3); White Blood Count 5.9 T/CUMM (4-12)
[2019-04-26 05:24] LABS: Alanine Aminotransferase 79 U/L (13-56); Albumin 2.2 G/DL (3.4-5.0); Alkaline Phosphatase 229 U/L (45-117); Aspartate Amino Transferase 34 U/L (0-37); Blood Urea Nitrogen 9 MG/DL (7-18); Calcium 8.3 MG/DL (8.5-10.1); Glucose 92 MG/DL (74-106); Osmolality,Calculated 288.6 MOS/KG (273-304); Total Protein 4.8 G/DL (6.4-8.3)
[2019-04-26] MEDS: INSULIN LISPRO 100 UNIT/ML SUBCUT SCH ×4 (07:33→21:13)
[2019-04-26] MEDS: POTASSIUM CHLORIDE RIDER 10 MEQ in PREMIX 1 EACH IV SCH ×4 (10:39→15:19)
[2019-04-26] MEDS: ASCORBIC ACID 500 MG TABLET PO SCH ×2 (10:40→21:11)
[2019-04-26] MEDS: THEOPHYLLINE ER 300 MG TABLET PO SCH ×2 (10:40→21:10)
[2019-04-26] MEDS: predniSONE 5 MG TABLET PO SCH (10:40)
[2019-04-26] MEDS: CARVEDILOL 25 MG TABLET PO SCH ×2 (10:41→21:12)
[2019-04-26] MEDS: PANTOPRAZOLE 40 MG TABLET PO SCH (10:41)
[2019-04-26] MEDS: CLOPIDOGREL 75 MG TABLET PO SCH (10:41)
[2019-04-26] MEDS: DILTIAZEM CD 120 MG CAPSULE PO SCH (10:41)
[2019-04-26] MEDS: MONTELUKAST 10 MG TABLET PO SCH ×2 (10:42→21:11)
[2019-04-26] MEDS: BISACODYL 10 MG SUPP RECTAL SCH ×2 (10:42→21:12)
[2019-04-26] MEDS: FLUOROURACIL TOP SCH ×2 (10:42→21:13)
[2019-04-26] MEDS: FUROSEMIDE 20 MG TABLET PO SCH (10:42)
[2019-04-26] MEDS: ASPIRIN EC 81 MG TABLET PO SCH (10:42)
[2019-04-26] MEDS: GABAPENTIN 100 MG CAPSULE PO SCH ×3 (10:42→21:12)
[2019-04-26] MEDS: POTASSIUM CHLORIDE 20 MEQ PACK PO SCH ×2 (10:42→21:11)
[2019-04-26] MEDS: SIMVASTATIN 80 MG TABLET PO SCH (21:11)
[2019-04-27] MEDS: ALBUTEROL/IPRATROPIUM 3 ML NEB RESP TX SCH ×4 (00:48→19:41)
[2019-04-27 04:51] LABS: Basophils % 0.3 % (0.0-0.8); Eosinophils # 0.1 10*3/uL (0.0-0.87); Eosinophils % 1.5 % (0.00-10.9); Hematocrit 29.5 VOL% (35.7-47.0); Hemoglobin 8.8 GM/DL (12.0-16.0); Immature Granulocytes % 0.9 %; Immature Granulocytes Absolute 0.05 #; Lymphocytes % 34.8 % (21.3-54.2); Mean Corpuscular HGB Conc 29.8 GM/DL (32-36); Mean Corpuscular Volume 94.2 FL (87-102); Monocytes % 8.6 % (1.7-12.7); Neutrophils % 53.9 % (38.7-73.9); Platelet Count 246 T/CUMM (130-400); Red Blood Count 3.13 MC/CUMM (3.8-5.5); Red Cell Distribution Width 15.4 % (9.3-17.3); White Blood Count 5.8 T/CUMM (4-12)
[2019-04-27 05:18] LABS: Albumin 2.3 G/DL (3.4-5.0); Bilirubin,Total 1.2 MG/DL (0.2-1.0); Calcium 8.5 MG/DL (8.5-10.1); Osmolality,Calculated 286.6 MOS/KG (273-304); Total Protein 4.9 G/DL (6.4-8.3)
[2019-04-27] MEDS: PIPERACILLIN/TAZOBACTAM 3,375 MG in SODIUM CHLORIDE 0.9% 100 ML IV SCH ×2 (06:30→17:15)
[2019-04-27] MEDS: INSULIN LISPRO 100 UNIT/ML SUBCUT SCH ×4 (09:01→21:09)
[2019-04-27] MEDS: SODIUM CHLOR 0.45% KCL 20 MEQ 20 MEQ/1,000 ML BAG IV SCH (10:39)
[2019-04-27] MEDS: CLOPIDOGREL 75 MG TABLET PO SCH (10:45)
[2019-04-27] MEDS: ASPIRIN EC 81 MG TABLET PO SCH (10:46)
[2019-04-27] MEDS: MONTELUKAST 10 MG TABLET PO SCH ×2 (10:46→21:05)
[2019-04-27] MEDS: PANTOPRAZOLE 40 MG TABLET PO SCH (10:46)
[2019-04-27] MEDS: THEOPHYLLINE ER 300 MG TABLET PO SCH ×2 (10:46→21:05)
[2019-04-27] MEDS: CARVEDILOL 25 MG TABLET PO SCH ×2 (10:47→21:05)
[2019-04-27] MEDS: predniSONE 5 MG TABLET PO SCH (10:47)
[2019-04-27] MEDS: ASCORBIC ACID 500 MG TABLET PO SCH ×2 (10:47→21:05)
[2019-04-27] MEDS: GABAPENTIN 100 MG CAPSULE PO SCH ×3 (10:47→21:05)
[2019-04-27] MEDS: DILTIAZEM CD 120 MG CAPSULE PO SCH (10:47)
[2019-04-27] MEDS: POTASSIUM CHLORIDE 20 MEQ PACK PO SCH ×2 (10:49→21:05)
[2019-04-27] MEDS: BISACODYL 10 MG SUPP RECTAL SCH ×2 (10:50→21:08)
[2019-04-27] MEDS: FLUOROURACIL TOP SCH ×2 (10:51→21:08)
[2019-04-27] MEDS: FUROSEMIDE 20 MG TABLET PO SCH (11:22)
[2019-04-27] MEDS: SIMVASTATIN 80 MG TABLET PO SCH (21:05)
[2019-04-28] MEDS: PIPERACILLIN/TAZOBACTAM 3,375 MG in SODIUM CHLORIDE 0.9% 100 ML IV SCH ×3 (00:51→16:08)
[2019-04-28] MEDS: ALBUTEROL/IPRATROPIUM 3 ML NEB RESP TX SCH ×4 (00:51→19:33)
[2019-04-28 04:32] LABS: INR 0.9; PT Patient Result 10.1 SECS
[2019-04-28 04:34] LABS: Basophils % 0.3 % (0.0-0.8); Eosinophils # 0.1 10*3/uL (0.0-0.87); Eosinophils % 1.3 % (0.00-10.9); Hematocrit 31.6 VOL% (35.7-47.0); Hemoglobin 9.2 GM/DL (12.0-16.0); Immature Granulocytes % 1.3 %; Immature Granulocytes Absolute 0.08 #; Lymphocytes % 30.7 % (21.3-54.2); Mean Corpuscular HGB Conc 29.1 GM/DL (32-36); Mean Corpuscular Volume 96.3 FL (87-102); Mean Platelet Volume 8.9 FL (9.6-12.0); Monocytes % 7.4 % (1.7-12.7); Platelet Count 221 T/CUMM (130-400); Red Blood Count 3.28 MC/CUMM (3.8-5.5); Red Cell Distribution Width 15.2 % (9.3-17.3); White Blood Count 6.4 T/CUMM (4-12)
[2019-04-28 04:49] LABS: Albumin 2.4 G/DL (3.4-5.0); Bilirubin,Total 0.7 MG/DL (0.2-1.0); Calcium 8.3 MG/DL (8.5-10.1); Osmolality,Calculated 286.7 MOS/KG (273-304); Total Protein 5.1 G/DL (6.4-8.3)
[2019-04-28] MEDS ORDERED: DEXTROSE 10% 250 ML IV PRN (07:44)
[2019-04-28] MEDS ORDERED: INDOMETHACIN SUPP 50 MG SUPP RECTAL ONE (08:00)
[2019-04-28] MEDS ORDERED: LACTATED RINGERS 1,000 ML IV SCH (08:00)
[2019-04-28] MEDS: INSULIN LISPRO 100 UNIT/ML SUBCUT SCH ×4 (09:13→20:50)
[2019-04-28] MEDS: BISACODYL 10 MG SUPP RECTAL SCH ×2 (10:52→20:50)
[2019-04-28] MEDS: CLOPIDOGREL 75 MG TABLET PO SCH (10:58)
[2019-04-28] MEDS: THEOPHYLLINE ER 300 MG TABLET PO SCH ×2 (10:58→20:50)
[2019-04-28] MEDS: MONTELUKAST 10 MG TABLET PO SCH ×2 (10:58→20:49)
[2019-04-28] MEDS: GABAPENTIN 100 MG CAPSULE PO SCH ×3 (10:58→20:49)
[2019-04-28] MEDS: DILTIAZEM CD 120 MG CAPSULE PO SCH (10:58)
[2019-04-28] MEDS: CARVEDILOL 25 MG TABLET PO SCH ×2 (10:58→20:49)
[2019-04-28] MEDS: ASPIRIN EC 81 MG TABLET PO SCH (10:58)
[2019-04-28] MEDS: PANTOPRAZOLE 40 MG TABLET PO SCH (10:59)
[2019-04-28] MEDS: predniSONE 5 MG TABLET PO SCH (10:59)
[2019-04-28] MEDS: POTASSIUM CHLORIDE 20 MEQ PACK PO SCH ×2 (10:59→20:50)
[2019-04-28] MEDS: SODIUM CHLOR 0.45% KCL 20 MEQ 20 MEQ/1,000 ML BAG IV SCH (11:18)
[2019-04-28] MEDS: FLUOROURACIL TOP SCH ×2 (12:00→20:50)
[2019-04-28] MEDS: ASCORBIC ACID 500 MG TABLET PO SCH ×2 (13:36→20:49)
[2019-04-28] MEDS: URSODIOL 300 MG CAPSULE PO SCH ×2 (13:36→20:49)
[2019-04-28] MEDS: DICLOFENAC 1% GEL 100 GM TUBE TOP SCH ×3 (13:36→20:51)
[2019-04-28] MEDS: SIMVASTATIN 80 MG TABLET PO SCH (20:49)
[2019-04-29] MEDS: PIPERACILLIN/TAZOBACTAM 3,375 MG in SODIUM CHLORIDE 0.9% 100 ML IV SCH ×3 (01:26→17:33)
[2019-04-29] MEDS: ALBUTEROL/IPRATROPIUM 3 ML NEB RESP TX SCH ×4 (01:58→19:03)
[2019-04-29 04:49] LABS: Basophils % 0.3 % (0.0-0.8); Eosinophils # 0.1 10*3/uL (0.0-0.87); Eosinophils % 1.1 % (0.00-10.9); Hemoglobin 9.5 GM/DL (12.0-16.0); Immature Granulocytes % 1.6 %; Immature Granulocytes Absolute 0.11 #; Lymphocytes % 28.9 % (21.3-54.2); Mean Corpuscular HGB Conc 29.7 GM/DL (32-36); Mean Corpuscular Volume 94.4 FL (87-102); Monocytes % 9.1 % (1.7-12.7); Platelet Count 239 T/CUMM (130-400); Red Blood Count 3.39 MC/CUMM (3.8-5.5); Red Cell Distribution Width 15.5 % (9.3-17.3)
[2019-04-29 05:14] LABS: Calcium 8.6 MG/DL (8.5-10.1); Osmolality,Calculated 285.7 MOS/KG (273-304)
[2019-04-29 05:16] LABS: Albumin 2.3 G/DL (3.4-5.0); Bilirubin,Total 0.6 MG/DL (0.2-1.0); Calcium 8.4 MG/DL (8.5-10.1); Osmolality,Calculated 285.7 MOS/KG (273-304); Total Protein 5.3 G/DL (6.4-8.3)
[2019-04-29] MEDS: INSULIN LISPRO 100 UNIT/ML SUBCUT SCH ×4 (08:13→21:08)
[2019-04-29 09:02] LABS: INR 0.9
[2019-04-29] MEDS: BISACODYL 10 MG SUPP RECTAL SCH ×2 (09:23→21:08)
[2019-04-29] MEDS ORDERED: INDOMETHACIN SUPP 50 MG SUPP RECTAL ONE (09:27)
[2019-04-29] MEDS ORDERED: LACTATED RINGERS 1,000 ML IV SCH (09:30)
[2019-04-29] MEDS: FLUOROURACIL TOP SCH ×2 (09:30→21:08)
[2019-04-29] MEDS: DICLOFENAC 1% GEL 100 GM TUBE TOP SCH ×4 (09:31→21:10)
[2019-04-29] MEDS ORDERED: PHENYLEPHRINE DRIP 0 MG/0 ML PREMIX IV ONE (10:09)
[2019-04-29] MEDS ORDERED: HEPARIN/NACL 0.9% 2 UNITS/ML 500 ML IV ONE (10:09)
[2019-04-29] MEDS ORDERED: EPINEPHrine 1 MG/10 ML SYRINGE ONE (10:10)
[2019-04-29] MEDS ORDERED: PHENYLEPHRINE 1 MG/10 ML SYRINGE IV ONE ×2 (10:10→12:06)
[2019-04-29] MEDS ORDERED: NITROGLYCERIN DRIP 50 MG/250 ML BOTTLE IV ONE (10:10)
[2019-04-29] MEDS ORDERED: ETOMIDATE 40 MG/20 ML VIAL IV ONE (12:05)
[2019-04-29] MEDS ORDERED: fentaNYL 100 MCG/2 ML VIAL ONE (12:05)
[2019-04-29] MEDS ORDERED: ONDANSETRON 4 MG/2 ML VIAL ONE (12:05)
[2019-04-29] MEDS ORDERED: SEVOFLURANE 1 UNIT/15 MINUTE INH ONE (12:05)
[2019-04-29] MEDS ORDERED: MIDAZOLAM 2 MG/2 ML VIAL ONE (12:05)
[2019-04-29] MEDS ORDERED: SUCCINYLCHOLINE 200 MG/10 ML VIAL ONE (12:06)
[2019-04-29] MEDS: MONTELUKAST 10 MG TABLET PO SCH ×2 (13:23→21:08)
[2019-04-29] MEDS: ASPIRIN EC 81 MG TABLET PO SCH (13:23)
[2019-04-29] MEDS: predniSONE 5 MG TABLET PO SCH (13:23)
[2019-04-29] MEDS: THEOPHYLLINE ER 300 MG TABLET PO SCH ×2 (13:23→21:07)
[2019-04-29] MEDS: ASCORBIC ACID 500 MG TABLET PO SCH ×2 (13:24→21:07)
[2019-04-29] MEDS: POTASSIUM CHLORIDE 20 MEQ PACK PO SCH ×2 (13:24→21:08)
[2019-04-29] MEDS: DILTIAZEM CD 120 MG CAPSULE PO SCH (13:24)
[2019-04-29] MEDS: URSODIOL 300 MG CAPSULE PO SCH ×2 (13:24→21:07)
[2019-04-29] MEDS: CLOPIDOGREL 75 MG TABLET PO SCH (13:24)
[2019-04-29] MEDS: PANTOPRAZOLE 40 MG TABLET PO SCH (13:24)
[2019-04-29] MEDS: GABAPENTIN 100 MG CAPSULE PO SCH ×3 (13:24→21:08)
[2019-04-29] MEDS: CARVEDILOL 25 MG TABLET PO SCH ×2 (13:24→21:09)
[2019-04-29] MEDS ORDERED: MAGNESIUM SULF RIDER 4 GM in PREMIX 1 EACH IV PRN (14:03)
[2019-04-29] MEDS ORDERED: MAGNESIUM SULF RIDER 2 GM in PREMIX 1 EACH IV PRN (14:03)
[2019-04-29] MEDS: MAGNESIUM OXIDE 400 MG TABLET PO SCH (21:08)
[2019-04-29] MEDS: SIMVASTATIN 80 MG TABLET PO SCH (21:08)
[2019-04-30] MEDS: ALBUTEROL/IPRATROPIUM 3 ML NEB RESP TX SCH ×2 (01:10→07:18)
[2019-04-30] MEDS: PIPERACILLIN/TAZOBACTAM 3,375 MG in SODIUM CHLORIDE 0.9% 100 ML IV SCH ×2 (01:22→09:40)
[2019-04-30 04:53] LABS: Basophils % 0.5 % (0.0-0.8); Eosinophils # 0.1 10*3/uL (0.0-0.87); Eosinophils % 1.2 % (0.00-10.9); Hematocrit 34.4 VOL% (35.7-47.0); Immature Granulocytes % 1.8 %; Immature Granulocytes Absolute 0.15 #; Lymphocytes % 23.4 % (21.3-54.2); Mean Corpuscular HGB Conc 29.1 GM/DL (32-36); Mean Corpuscular Volume 95.6 FL (87-102); Mean Platelet Volume 8.7 FL (9.6-12.0); Monocytes % 8.2 % (1.7-12.7); Neutrophils % 64.9 % (38.7-73.9); Platelet Count 247 T/CUMM (130-400); Red Cell Distribution Width 15.3 % (9.3-17.3); White Blood Count 8.4 T/CUMM (4-12)
[2019-04-30 05:30] LABS: Albumin 2.4 G/DL (3.4-5.0); Bilirubin,Total 0.8 MG/DL (0.2-1.0); Calcium 8.6 MG/DL (8.5-10.1); Osmolality,Calculated 282.8 MOS/KG (273-304); Total Protein 5.4 G/DL (6.4-8.3)
[2019-04-30] MEDS: INSULIN LISPRO 100 UNIT/ML SUBCUT SCH ×2 (08:29→11:28)
[2019-04-30] MEDS: THEOPHYLLINE ER 300 MG TABLET PO SCH (09:37)
[2019-04-30] MEDS: predniSONE 5 MG TABLET PO SCH (09:38)
[2019-04-30] MEDS: PANTOPRAZOLE 40 MG TABLET PO SCH (09:38)
[2019-04-30] MEDS: MAGNESIUM OXIDE 400 MG TABLET PO SCH (09:38)
[2019-04-30] MEDS: DILTIAZEM CD 120 MG CAPSULE PO SCH (09:38)
[2019-04-30] MEDS: FLUOROURACIL TOP SCH (09:39)
[2019-04-30] MEDS: CARVEDILOL 25 MG TABLET PO SCH (09:39)
[2019-04-30] MEDS: POTASSIUM CHLORIDE 20 MEQ PACK PO SCH (09:39)
[2019-04-30] MEDS: URSODIOL 300 MG CAPSULE PO SCH (09:39)
[2019-04-30] MEDS: CLOPIDOGREL 75 MG TABLET PO SCH (09:39)
[2019-04-30] MEDS: GABAPENTIN 100 MG CAPSULE PO SCH (09:39)
[2019-04-30] MEDS: BISACODYL 10 MG SUPP RECTAL SCH (09:39)
[2019-04-30] MEDS: ASCORBIC ACID 500 MG TABLET PO SCH (09:39)
[2019-04-30] MEDS: ASPIRIN EC 81 MG TABLET PO SCH (09:39)
[2019-04-30] MEDS: MONTELUKAST 10 MG TABLET PO SCH (09:39)
[2019-04-30] MEDS: DICLOFENAC 1% GEL 100 GM TUBE TOP SCH (09:40)
[2019-04-30 12:08] VITALS: BP 170/82
== END 2019-04-30 13:09 | disposition home or self-care (01) | DRG 445 ==
LOC: N.2E 16:02 → SUATTDRO 16:02
PROVIDERS: ADMIT Internal Medicine; ATTEND Internal Medicine
PROC: ERCPWST (ICD-10-PCS; 2019-04-29 09:05)

== ENCOUNTER 2019-06-09 09:47 | Inpatient (IN) ==
[2019-06-09] MEDS ORDERED: DILTIAZEM 25 MG/5 ML VIAL IV ONE (09:59)
[2019-06-09] MEDS ORDERED: DILTIAZEM 50 MG/10 ML VIAL IV STA (09:59)
[2019-06-09 10:12] LABS: Basophils # 0.1 10*3/uL (0.0-0.2); Basophils % 0.3 % (0.0-0.8); Eosinophils # 0.2 10*3/uL (0.0-0.87); Eosinophils % 1.6 % (0.00-10.9); Hematocrit 36.3 VOL% (35.7-47.0); Hemoglobin 10.9 GM/DL (12.0-16.0); Immature Granulocytes % 0.6 %; Immature Granulocytes Absolute 0.08 #; Lymphocytes # 2.8 10*3/uL (1.4-4.0); Lymphocytes % 19.2 % (21.3-54.2); Mean Corpuscular Volume 87.9 FL (87-102); Mean Platelet Volume 8.8 FL (9.6-12.0); Monocytes % 4.6 % (1.7-12.7); Neutrophils % 73.7 % (38.7-73.9); Platelet Count 318 T/CUMM (130-400); Red Blood Count 4.13 MC/CUMM (3.8-5.5); Red Cell Distribution Width 15.1 % (9.3-17.3); White Blood Count 14.4 T/CUMM (4-12)
[2019-06-09] MEDS ORDERED: SODIUM CHLORIDE 0.9% 500 ML IV STA (10:16)
[2019-06-09] MEDS: dilTIAZem Drip 125 MG/125 ML PREMIX IV SCH ×2 (10:17→15:01)
[2019-06-09 10:19] LABS: INR 0.9; PT Patient Result 10.2 SECS
[2019-06-09 10:29] LABS: Alanine Aminotransferase < 9 U/L (13-56); Albumin 2.6 G/DL (3.4-5.0); Alkaline Phosphatase 104 U/L (45-117); Aspartate Amino Transferase 12 U/L (0-37); Bilirubin,Total < 0.39 MG/DL (0.2-1.0); Blood Urea Nitrogen 22 MG/DL (7-18); Calcium 9.1 MG/DL (8.5-10.1); Glucose 126 MG/DL (74-106); Osmolality,Calculated 283.4 MOS/KG (273-304); Total Protein 6.1 G/DL (6.4-8.3)
[2019-06-09] MEDS ORDERED: DILTIAZEM CD 120 MG CAPSULE PO STA (10:40)
[2019-06-09] MEDS ORDERED: DILTIAZEM CD 120 MG CAPSULE PO ONE (10:42)
[2019-06-09 11:13] LABS: Apearance,Urine CLEAR (Clear); Bilirubin,Urine Negative (Negative); Blood, Urine Negative (Negative); Glucose,Urine (UA) Negative (Negative); Ketones,Urine 5 mg/dL (Negative); Mucus,Urine Occasional /LPF (Occasional); Nitrite,Urine Negative (Negative); Protein,Urine Negative; Squamous Epithelial Cell,Urine Occasional /HPF (0-10); Urine Color Yellow (Yellow); Urine Specific Gravity 1.023 (1.001-1.035); WBC,Urine <1 /HPF (0-6)
[2019-06-09] MEDS ORDERED: ONDANSETRON 4 MG/2 ML VIAL IV PRN (11:44)
[2019-06-09] MEDS ORDERED: DICLOFENAC 1% GEL 100 GM TUBE TOP PRN (13:18)
[2019-06-09] MEDS ORDERED: ACETAMINOPHEN 325 MG TABLET PO PRN (13:18)
[2019-06-09] MEDS ORDERED: CYCLOBENZAPRINE 10 MG TABLET PO PRN (13:18)
[2019-06-09] MEDS ORDERED: NITROGLYCERIN SL 0.4 MG TABLET SL PRN (13:18)
[2019-06-09] MEDS ORDERED: guaiFENesin/DM ER 600-30 MG TABLET PO PRN (13:18)
[2019-06-09] MEDS: LEVOFLOXACIN 750 MG TABLET PO SCH (15:50)
[2019-06-09] MEDS: GABAPENTIN 100 MG CAPSULE PO SCH ×2 (15:50→21:30)
[2019-06-09] MEDS: traMADol 50 MG TABLET PO PRN ×2 (15:50→23:22)
[2019-06-09] MEDS: ALBUTEROL/IPRATROPIUM 3 ML NEB RESP TX SCH ×2 (16:00→22:57)
[2019-06-09] MEDS: IPRATROPIUM 500 MCG/2.5 ML NEB RESP TX SCH ×2 (16:00→19:12)
[2019-06-09] MEDS: CARVEDILOL 25 MG TABLET PO SCH (16:59)
[2019-06-09] MEDS ORDERED: THEOPHYLLINE ER 200 MG TABLET PO SCH (21:00)
[2019-06-09] MEDS ORDERED: ALBUTEROL 2.5 MG/3 ML NEB RESP TX PRN (21:00)
[2019-06-09] MEDS: MONTELUKAST 10 MG TABLET PO SCH (21:30)
[2019-06-09] MEDS: THEOPHYLLINE ER 300 MG TABLET PO SCH (21:31)
[2019-06-09] MEDS: URSODIOL 300 MG CAPSULE PO SCH (21:31)
[2019-06-09] MEDS: APIXABAN 2.5 MG TABLET PO SCH (21:31)
[2019-06-09] MEDS: POTASSIUM CHLORIDE 20 MEQ PACK PO SCH (21:32)
[2019-06-09] MEDS: SIMVASTATIN 80 MG TABLET PO SCH (21:32)
[2019-06-10] MEDS: dilTIAZem Drip 125 MG/125 ML PREMIX IV SCH ×2 (00:01→10:42)
[2019-06-10 04:33] LABS: Basophils % 0.5 % (0.0-0.8); Eosinophils # 0.3 10*3/uL (0.0-0.87); Eosinophils % 2.9 % (0.00-10.9); Hematocrit 32.8 VOL% (35.7-47.0); Hemoglobin 9.6 GM/DL (12.0-16.0); Immature Granulocytes % 0.6 %; Immature Granulocytes Absolute 0.05 #; Lymphocytes % 22.6 % (21.3-54.2); Mean Corpuscular HGB Conc 29.3 GM/DL (32-36); Mean Corpuscular Volume 89.6 FL (87-102); Mean Platelet Volume 8.9 FL (9.6-12.0); Monocytes % 6.2 % (1.7-12.7); Neutrophils % 67.2 % (38.7-73.9); Platelet Count 292 T/CUMM (130-400); Red Blood Count 3.66 MC/CUMM (3.8-5.5); Red Cell Distribution Width 15.1 % (9.3-17.3); White Blood Count 8.8 T/CUMM (4-12)
[2019-06-10 05:08] LABS: Calcium 8.6 MG/DL (8.5-10.1); Osmolality,Calculated 279.5 MOS/KG (273-304); Thyroid Stimulating Hormone 0.105 uIU/ml (0.358-3.74)
[2019-06-10] MEDS: ALBUTEROL/IPRATROPIUM 3 ML NEB RESP TX SCH ×2 (06:20→14:42)
[2019-06-10] MEDS ORDERED: MAGNESIUM SULF RIDER 4 GM in PREMIX 1 EACH IV PRN (07:20)
[2019-06-10] MEDS ORDERED: MAGNESIUM SULF RIDER 2 GM in PREMIX 1 EACH IV PRN (07:20)
[2019-06-10] MEDS: IPRATROPIUM 500 MCG/2.5 ML NEB RESP TX SCH ×4 (08:01→20:08)
[2019-06-10] MEDS: THEOPHYLLINE ER 300 MG TABLET PO SCH ×2 (08:35→20:31)
[2019-06-10] MEDS: ASCORBIC ACID 500 MG TABLET PO SCH (08:35)
[2019-06-10] MEDS: CARVEDILOL 25 MG TABLET PO SCH ×2 (08:36→17:40)
[2019-06-10] MEDS: CLOPIDOGREL 75 MG TABLET PO SCH (08:36)
[2019-06-10] MEDS: MAGNESIUM OXIDE 400 MG TABLET PO SCH (08:36)
[2019-06-10] MEDS: URSODIOL 300 MG CAPSULE PO SCH ×2 (08:36→20:31)
[2019-06-10] MEDS: APIXABAN 2.5 MG TABLET PO SCH ×2 (08:36→20:31)
[2019-06-10] MEDS: FUROSEMIDE 20 MG TABLET PO SCH (08:36)
[2019-06-10] MEDS: POTASSIUM CHLORIDE 20 MEQ PACK PO SCH ×2 (08:36→20:31)
[2019-06-10] MEDS: DILTIAZEM CD 120 MG CAPSULE PO SCH (08:36)
[2019-06-10] MEDS: PANTOPRAZOLE 40 MG TABLET PO SCH (08:37)
[2019-06-10] MEDS: GABAPENTIN 100 MG CAPSULE PO SCH ×3 (08:37→20:31)
[2019-06-10] MEDS: traMADol 50 MG TABLET PO PRN ×2 (08:43→19:37)
[2019-06-10] MEDS: ACETAMINOPHEN 325 MG TABLET PO PRN ×2 (08:50→19:36)
[2019-06-10] MEDS ORDERED: ASPIRIN EC 81 MG TABLET PO SCH (09:00)
[2019-06-10] MEDS: LEVOFLOXACIN 750 MG TABLET PO SCH (16:18)
[2019-06-10] MEDS: SIMVASTATIN 80 MG TABLET PO SCH (20:31)
[2019-06-10] MEDS: MONTELUKAST 10 MG TABLET PO SCH (20:31)
[2019-06-11] MEDS: ALBUTEROL/IPRATROPIUM 3 ML NEB RESP TX SCH ×4 (00:02→19:40)
[2019-06-11 06:30] LABS: Calcium 8.9 MG/DL (8.5-10.1); Osmolality,Calculated 283.1 MOS/KG (273-304)
[2019-06-11 06:31] LABS: Basophils # 0.1 10*3/uL (0.0-0.2); Basophils % 0.7 % (0.0-0.8); Eosinophils # 0.3 10*3/uL (0.0-0.87); Eosinophils % 4.3 % (0.00-10.9); Hematocrit 33.2 VOL% (35.7-47.0); Immature Granulocytes % 0.4 %; Immature Granulocytes Absolute 0.03 #; Lymphocytes # 1.9 10*3/uL (1.4-4.0); Lymphocytes % 24.3 % (21.3-54.2); Mean Corpuscular HGB Conc 30.4 GM/DL (32-36); Mean Corpuscular Volume 88.5 FL (87-102); Mean Platelet Volume 9.1 FL (9.6-12.0); Monocytes % 7.8 % (1.7-12.7); Neutrophils % 62.5 % (38.7-73.9); Platelet Count 294 T/CUMM (130-400); Red Blood Count 3.75 MC/CUMM (3.8-5.5); Red Cell Distribution Width 15.2 % (9.3-17.3); White Blood Count 7.7 T/CUMM (4-12)
[2019-06-11 06:33] LABS: Hemoglobin 10.1 GM/DL (12.0-16.0)
[2019-06-11] MEDS: traMADol 50 MG TABLET PO PRN ×2 (06:55→16:49)
[2019-06-11] MEDS: ACETAMINOPHEN 325 MG TABLET PO PRN ×4 (06:56→22:13)
[2019-06-11] MEDS: IPRATROPIUM 500 MCG/2.5 ML NEB RESP TX SCH ×3 (08:23→13:53)
[2019-06-11] MEDS: FUROSEMIDE 20 MG TABLET PO SCH (09:44)
[2019-06-11] MEDS: ASCORBIC ACID 500 MG TABLET PO SCH (09:44)
[2019-06-11] MEDS: URSODIOL 300 MG CAPSULE PO SCH ×2 (09:44→20:29)
[2019-06-11] MEDS: THEOPHYLLINE ER 300 MG TABLET PO SCH ×2 (09:45→20:29)
[2019-06-11] MEDS: PANTOPRAZOLE 40 MG TABLET PO SCH (09:45)
[2019-06-11] MEDS: MAGNESIUM OXIDE 400 MG TABLET PO SCH (09:45)
[2019-06-11] MEDS: GABAPENTIN 100 MG CAPSULE PO SCH ×3 (09:46→20:31)
[2019-06-11] MEDS: DILTIAZEM CD 120 MG CAPSULE PO SCH (09:46)
[2019-06-11] MEDS: CLOPIDOGREL 75 MG TABLET PO SCH (09:47)
[2019-06-11] MEDS: APIXABAN 2.5 MG TABLET PO SCH ×2 (09:47→20:31)
[2019-06-11] MEDS: POTASSIUM CHLORIDE 20 MEQ PACK PO SCH ×2 (09:47→20:28)
[2019-06-11] MEDS: CARVEDILOL 25 MG TABLET PO SCH (10:32)
[2019-06-11] MEDS: dilTIAZem Drip 125 MG/125 ML PREMIX IV SCH (10:37)
[2019-06-11] MEDS: LEVOFLOXACIN 750 MG TABLET PO SCH (16:48)
[2019-06-11] MEDS: CARVEDILOL 12.5 MG TABLET PO SCH (16:48)
[2019-06-11] MEDS: methylPREDNISolone SOD SUC 40 MG/1 ML VIAL IV SCH (18:25)
[2019-06-11] MEDS: SIMVASTATIN 80 MG TABLET PO SCH (20:29)
[2019-06-11] MEDS: MONTELUKAST 10 MG TABLET PO SCH (20:29)
[2019-06-12] MEDS: traMADol 50 MG TABLET PO PRN ×2 (00:36→10:21)
[2019-06-12] MEDS: ALBUTEROL/IPRATROPIUM 3 ML NEB RESP TX SCH ×4 (00:50→19:31)
[2019-06-12] MEDS: methylPREDNISolone SOD SUC 40 MG/1 ML VIAL IV SCH ×3 (02:32→21:40)
[2019-06-12] MEDS: CARVEDILOL 12.5 MG TABLET PO SCH ×2 (09:13→16:48)
[2019-06-12] MEDS: MAGNESIUM OXIDE 400 MG TABLET PO SCH (09:14)
[2019-06-12] MEDS: FUROSEMIDE 20 MG TABLET PO SCH (09:14)
[2019-06-12] MEDS: URSODIOL 300 MG CAPSULE PO SCH ×2 (09:14→21:40)
[2019-06-12] MEDS: GABAPENTIN 100 MG CAPSULE PO SCH ×3 (09:14→21:40)
[2019-06-12] MEDS: DILTIAZEM CD 120 MG CAPSULE PO SCH (09:14)
[2019-06-12] MEDS: APIXABAN 2.5 MG TABLET PO SCH ×2 (09:14→21:39)
[2019-06-12] MEDS: POTASSIUM CHLORIDE 20 MEQ PACK PO SCH ×2 (09:15→21:40)
[2019-06-12] MEDS: CLOPIDOGREL 75 MG TABLET PO SCH (09:15)
[2019-06-12] MEDS: THEOPHYLLINE ER 300 MG TABLET PO SCH ×2 (09:15→21:39)
[2019-06-12] MEDS: PANTOPRAZOLE 40 MG TABLET PO SCH (09:15)
[2019-06-12] MEDS: dilTIAZem Drip 125 MG/125 ML PREMIX IV SCH (09:15)
[2019-06-12] MEDS: ASCORBIC ACID 500 MG TABLET PO SCH (09:15)
[2019-06-12] MEDS: ACETAMINOPHEN 325 MG TABLET PO PRN (10:21)
[2019-06-12] MEDS: LEVOFLOXACIN 750 MG TABLET PO SCH (15:55)
[2019-06-12] MEDS: MONTELUKAST 10 MG TABLET PO SCH (21:39)
[2019-06-12] MEDS: SIMVASTATIN 80 MG TABLET PO SCH (21:58)
[2019-06-13] MEDS: ALBUTEROL/IPRATROPIUM 3 ML NEB RESP TX SCH ×2 (02:06→07:50)
[2019-06-13] MEDS: methylPREDNISolone SOD SUC 40 MG/1 ML VIAL IV SCH (05:11)
[2019-06-13 05:25] LABS: Free T4 (Free Thyroxine) 1.07 NG/DL (0.76-1.46)
[2019-06-13] MEDS: DILTIAZEM CD 120 MG CAPSULE PO SCH (08:49)
[2019-06-13] MEDS: POTASSIUM CHLORIDE 20 MEQ PACK PO SCH (08:49)
[2019-06-13] MEDS: FUROSEMIDE 20 MG TABLET PO SCH (08:49)
[2019-06-13] MEDS: APIXABAN 2.5 MG TABLET PO SCH (08:49)
[2019-06-13] MEDS: PANTOPRAZOLE 40 MG TABLET PO SCH (08:49)
[2019-06-13] MEDS: URSODIOL 300 MG CAPSULE PO SCH (08:49)
[2019-06-13] MEDS: MAGNESIUM OXIDE 400 MG TABLET PO SCH (08:49)
[2019-06-13] MEDS: THEOPHYLLINE ER 300 MG TABLET PO SCH (08:49)
[2019-06-13] MEDS: CLOPIDOGREL 75 MG TABLET PO SCH (08:49)
[2019-06-13] MEDS: GABAPENTIN 100 MG CAPSULE PO SCH (08:49)
[2019-06-13] MEDS: CARVEDILOL 12.5 MG TABLET PO SCH (08:49)
[2019-06-13] MEDS: ASCORBIC ACID 500 MG TABLET PO SCH (08:49)
[2019-06-13 09:24] VITALS: BP 143/92
== END 2019-06-13 12:19 | disposition home health service (06) | DRG 308 ==
LOC: EDUNIT# → EDBD → N.ED 09:47 → N.TELES 09:47 → SUATTDRO 11:43 → N.TELES 13:52
PROVIDERS: ADMIT Internal Medicine; ATTEND Internal Medicine

== ENCOUNTER 2019-06-24 11:14 | Inpatient (IN) ==
[2019-06-24] MEDS ORDERED: DILTIAZEM 50 MG/10 ML VIAL IV STA ×2 (11:31→11:50)
[2019-06-24 11:42] LABS: Basophils % 0.3 % (0.0-0.8); Eosinophils # 0.2 10*3/uL (0.0-0.87); Eosinophils % 2.1 % (0.00-10.9); Hematocrit 35.4 VOL% (35.7-47.0); Hemoglobin 10.6 GM/DL (12.0-16.0); Immature Granulocytes % 0.4 %; Immature Granulocytes Absolute 0.04 #; Lymphocytes # 2.1 10*3/uL (1.4-4.0); Lymphocytes % 23.1 % (21.3-54.2); Mean Corpuscular HGB Conc 29.9 GM/DL (32-36); Mean Platelet Volume 9.2 FL (9.6-12.0); Monocytes % 6.9 % (1.7-12.7); Neutrophils % 67.2 % (38.7-73.9); Platelet Count 235 T/CUMM (130-400); Red Blood Count 4.07 MC/CUMM (3.8-5.5); Red Cell Distribution Width 15.6 % (9.3-17.3); White Blood Count 9.2 T/CUMM (4-12)
[2019-06-24] MEDS: dilTIAZem Drip 125 MG/125 ML PREMIX IV SCH (11:47)
[2019-06-24 12:10] LABS: Alanine Aminotransferase 11 U/L (13-56); Albumin 2.8 G/DL (3.4-5.0); Alkaline Phosphatase 104 U/L (45-117); Aspartate Amino Transferase 12 U/L (0-37); Bilirubin,Total < 0.39 MG/DL (0.2-1.0); Blood Urea Nitrogen 21 MG/DL (7-18); Calcium 8.8 MG/DL (8.5-10.1); Glucose 113 MG/DL (74-106); Osmolality,Calculated 286.1 MOS/KG (273-304); Thyroid Stimulating Hormone 0.487 uIU/ml (0.358-3.74); Total Protein 5.4 G/DL (6.4-8.3)
[2019-06-24 12:32] LABS: PT Patient Result 10.5 SECS; Partial Thromboplastin Time 27.6 SECS (0-40)
[2019-06-24] MEDS ORDERED: LACTULOSE 20 GM/30 ML UDCUP PO PRN (13:57)
[2019-06-24] MEDS ORDERED: ACETAMINOPHEN 325 MG TABLET PO PRN (13:57)
[2019-06-24] MEDS ORDERED: ONDANSETRON 4 MG/2 ML VIAL IV PRN (13:57)
[2019-06-24] MEDS ORDERED: DICLOFENAC 1% GEL 100 GM TUBE TOP PRN (14:45)
[2019-06-24] MEDS ORDERED: CYCLOBENZAPRINE 10 MG TABLET PO PRN (14:45)
[2019-06-24] MEDS ORDERED: diphenhydrAMINE CAP 25 MG CAPSULE PO PRN (14:45)
[2019-06-24] MEDS ORDERED: NITROGLYCERIN SL 0.4 MG TABLET SL PRN (14:45)
[2019-06-24] MEDS: GABAPENTIN 100 MG CAPSULE PO SCH ×2 (14:58→20:28)
[2019-06-24] MEDS ORDERED: ENOXAPARIN 40 MG/0.4 ML SYRINGE SUBCUT SCH (15:00)
[2019-06-24] MEDS: ALBUTEROL/IPRATROPIUM 3 ML NEB RESP TX SCH (15:27)
[2019-06-24 18:44] LABS: Apearance,Urine CLEAR (Clear); Bacteria,Urine Occasional /HPF (Few); Bilirubin,Urine Negative (Negative); Blood, Urine Negative (Negative); Glucose,Urine (UA) Negative (Negative); Ketones,Urine 20 mg/dL (Negative); Mucus,Urine Few /LPF (Occasional); Nitrite,Urine Negative (Negative); Protein,Urine Negative; RBC,Urine 2 /HPF (0-4); Squamous Epithelial Cell,Urine Occasional /HPF (0-10); Urine Color Yellow (Yellow); Urine Specific Gravity 1.025 (1.001-1.035); Urine Urobilinogen < 2.0 EU/DL (0.2-1.0); WBC,Urine 5 /HPF (0-6)
[2019-06-24] MEDS: URSODIOL 300 MG CAPSULE PO SCH (20:28)
[2019-06-24] MEDS: SIMVASTATIN 80 MG TABLET PO SCH (20:28)
[2019-06-24] MEDS: MONTELUKAST 10 MG TABLET PO SCH (20:28)
[2019-06-24] MEDS: POTASSIUM CHLORIDE 20 MEQ PACK PO SCH (20:29)
[2019-06-24] MEDS: CARVEDILOL 25 MG TABLET PO SCH (20:29)
[2019-06-24] MEDS: APIXABAN 2.5 MG TABLET PO SCH (20:29)
[2019-06-24] MEDS: Umeclidinium-Vilanterol [Anoro Ellipta] 1 inh INH SCH (20:30)
[2019-06-24] MEDS: THEOPHYLLINE 100 MG PO SCH (20:30)
[2019-06-24] MEDS ORDERED: ALBUTEROL 2.5 MG/3 ML NEB RESP TX PRN (21:00)
[2019-06-24 21:47] LABS: Barbiturates Screen,Urine Negative (Negative); Benzodiazepines Screen,Urine Negative (Negative); Cannabinoid Screen,Urine Negative (Negative); Opiate Screen,Urine Positive (Negative); Phencyclidine Screen,Urine Negative (Negative)
[2019-06-24] MEDS ORDERED: MAGNESIUM SULF RIDER 2 GM in PREMIX 1 EACH IV PRN (22:02)
[2019-06-24] MEDS ORDERED: POTASSIUM CHLORIDE 20 MEQ TABLET PO PRN (22:02)
[2019-06-24] MEDS ORDERED: MAGNESIUM SULF RIDER 4 GM in PREMIX 1 EACH IV PRN (22:02)
[2019-06-25] MEDS: ALBUTEROL/IPRATROPIUM 3 ML NEB RESP TX SCH ×3 (00:45→13:16)
[2019-06-25 05:21] LABS: Basophils % 0.4 % (0.0-0.8); Eosinophils # 0.4 10*3/uL (0.0-0.87); Eosinophils % 6.3 % (0.00-10.9); Hematocrit 33.3 VOL% (35.7-47.0); Hemoglobin 9.9 GM/DL (12.0-16.0); Immature Granulocytes Absolute 0.07 #; Lymphocytes # 2.1 10*3/uL (1.4-4.0); Lymphocytes % 30.5 % (21.3-54.2); Mean Corpuscular HGB Conc 29.7 GM/DL (32-36); Mean Corpuscular Volume 88.6 FL (87-102); Mean Platelet Volume 9.5 FL (9.6-12.0); Monocytes % 7.1 % (1.7-12.7); Neutrophils % 54.7 % (38.7-73.9); Platelet Count 216 T/CUMM (130-400); Red Blood Count 3.76 MC/CUMM (3.8-5.5); Red Cell Distribution Width 15.9 % (9.3-17.3)
[2019-06-25 05:43] LABS: Calcium 8.7 MG/DL (8.5-10.1); Osmolality,Calculated 285.1 MOS/KG (273-304); Risk Ratio 3.17; VLDL CHOLESTEROL 33.8 MG/DL
[2019-06-25] MEDS: POTASSIUM CHLORIDE 20 MEQ PACK PO SCH ×2 (09:36→21:43)
[2019-06-25] MEDS: DILTIAZEM CD 120 MG CAPSULE PO SCH (09:38)
[2019-06-25] MEDS: URSODIOL 300 MG CAPSULE PO SCH ×2 (09:38→21:43)
[2019-06-25] MEDS: ASCORBIC ACID 500 MG TABLET PO SCH (09:38)
[2019-06-25] MEDS: FUROSEMIDE 20 MG TABLET PO SCH (09:38)
[2019-06-25] MEDS: APIXABAN 2.5 MG TABLET PO SCH ×2 (09:39→21:44)
[2019-06-25] MEDS: MAGNESIUM OXIDE 400 MG TABLET PO SCH (09:39)
[2019-06-25] MEDS: CLOPIDOGREL 75 MG TABLET PO SCH (09:40)
[2019-06-25] MEDS: PANTOPRAZOLE 40 MG TABLET PO SCH (09:40)
[2019-06-25] MEDS: MONTELUKAST 10 MG TABLET PO SCH ×2 (09:40→21:43)
[2019-06-25] MEDS: THEOPHYLLINE 100 MG PO SCH (09:40)
[2019-06-25] MEDS: Umeclidinium-Vilanterol [Anoro Ellipta] 1 inh INH SCH ×2 (09:40→22:01)
[2019-06-25] MEDS: GABAPENTIN 100 MG CAPSULE PO SCH ×3 (09:40→21:44)
[2019-06-25] MEDS: CARVEDILOL 25 MG TABLET PO SCH ×2 (11:52→16:14)
[2019-06-25] MEDS ORDERED: ALBUTEROL/IPRATROPIUM 3 ML NEB RESP TX PRN (14:39)
[2019-06-25] MEDS: dilTIAZem Drip 125 MG/125 ML PREMIX IV SCH (14:46)
[2019-06-25] MEDS: SIMVASTATIN 80 MG TABLET PO SCH (21:43)
[2019-06-25] MEDS ORDERED: THEOPHYLLINE ER 100 MG TABLET PO SCH ×2 (22:00→22:30)
[2019-06-26] MEDS: THEOPHYLLINE 5.33 MG/ML 30 ML/BOTTLE PO SCH ×2 (00:01→11:16)
[2019-06-26] MEDS: ALBUTEROL/IPRATROPIUM 3 ML NEB RESP TX SCH ×3 (00:33→14:08)
[2019-06-26 05:11] LABS: Basophils % 0.4 % (0.0-0.8); Eosinophils # 0.6 10*3/uL (0.0-0.87); Eosinophils % 6.1 % (0.00-10.9); Hematocrit 33.7 VOL% (35.7-47.0); Immature Granulocytes % 0.4 %; Immature Granulocytes Absolute 0.04 #; Lymphocytes # 2.4 10*3/uL (1.4-4.0); Lymphocytes % 26.5 % (21.3-54.2); Mean Corpuscular HGB Conc 29.7 GM/DL (32-36); Mean Corpuscular Volume 89.6 FL (87-102); Mean Platelet Volume 9.7 FL (9.6-12.0); Monocytes % 6.7 % (1.7-12.7); Neutrophils % 59.9 % (38.7-73.9); Platelet Count 229 T/CUMM (130-400); Red Blood Count 3.76 MC/CUMM (3.8-5.5); Red Cell Distribution Width 15.9 % (9.3-17.3)
[2019-06-26 05:17] LABS: INR 0.9; PT Patient Result 10.2 SECS
[2019-06-26 05:45] LABS: Calcium 8.2 MG/DL (8.5-10.1)
[2019-06-26] MEDS ORDERED: INDOMETHACIN SUPP 50 MG SUPP RECTAL ONE (08:00)
[2019-06-26] MEDS ORDERED: LACTATED RINGERS 1,000 ML IV SCH (08:00)
[2019-06-26] MEDS ORDERED: ROCURONIUM 100 MG/10 ML VIAL IV ONE (09:00)
[2019-06-26] MEDS ORDERED: ETOMIDATE 20 MG/10 ML VIAL IV ONE (09:00)
[2019-06-26] MEDS ORDERED: PHENYLEPHRINE 1 MG/10 ML SYRINGE IV ONE (09:00)
[2019-06-26] MEDS ORDERED: SUCCINYLCHOLINE 200 MG/10 ML VIAL ONE (09:00)
[2019-06-26] MEDS ORDERED: PROPOFOL 200 MG/20 ML VIAL IV ONE (09:00)
[2019-06-26] MEDS ORDERED: LIDOCAINE 2% 5 ML VIAL ONE (09:00)
[2019-06-26] MEDS ORDERED: THEOPHYLLINE PO SCH (09:00)
[2019-06-26] MEDS ORDERED: fentaNYL 100 MCG/2 ML VIAL ONE (09:27)
[2019-06-26] MEDS ORDERED: ALBUTEROL/IPRATROPIUM 3 ML NEB RESP TX ONE (09:50)
[2019-06-26] MEDS: THEOPHYLLINE 100 MG PO SCH (10:36)
[2019-06-26] MEDS: POTASSIUM CHLORIDE 20 MEQ PACK PO SCH (11:15)
[2019-06-26] MEDS: MAGNESIUM OXIDE 400 MG TABLET PO SCH (11:17)
[2019-06-26] MEDS: MONTELUKAST 10 MG TABLET PO SCH (11:17)
[2019-06-26] MEDS: ASCORBIC ACID 500 MG TABLET PO SCH (11:17)
[2019-06-26] MEDS: URSODIOL 300 MG CAPSULE PO SCH (11:18)
[2019-06-26] MEDS: CARVEDILOL 25 MG TABLET PO SCH (11:18)
[2019-06-26] MEDS: FUROSEMIDE 20 MG TABLET PO SCH (11:18)
[2019-06-26] MEDS: DILTIAZEM CD 120 MG CAPSULE PO SCH (11:19)
[2019-06-26] MEDS: CLOPIDOGREL 75 MG TABLET PO SCH (11:19)
[2019-06-26] MEDS: GABAPENTIN 100 MG CAPSULE PO SCH ×2 (11:19→14:37)
[2019-06-26] MEDS: APIXABAN 2.5 MG TABLET PO SCH (11:20)
[2019-06-26] MEDS: PANTOPRAZOLE 40 MG TABLET PO SCH (11:20)
[2019-06-26 12:00] VITALS: BP 110/60
== END 2019-06-26 15:45 | disposition home health service (06) | DRG 309 ==
LOC: N.ED 11:14 → N.EDINP 12:29 → N.TELEN 14:10

== ENCOUNTER 2019-07-06 09:30 | Inpatient (IN) ==
[2019-07-06 10:47] LABS: Basophils % 0.3 % (0.0-0.8); Eosinophils # 0.4 10*3/uL (0.0-0.87); Eosinophils % 3.2 % (0.00-10.9); Hematocrit 40.7 VOL% (35.7-47.0); Hemoglobin 12.4 GM/DL (12.0-16.0); Immature Granulocytes % 0.3 %; Immature Granulocytes Absolute 0.04 #; Lymphocytes # 3.3 10*3/uL (1.4-4.0); Lymphocytes % 25.8 % (21.3-54.2); Mean Corpuscular HGB Conc 30.5 GM/DL (32-36); Mean Platelet Volume 9.3 FL (9.6-12.0); Monocytes % 7.1 % (1.7-12.7); Neutrophils % 63.3 % (38.7-73.9); Platelet Count 354 T/CUMM (130-400); Red Blood Count 4.73 MC/CUMM (3.8-5.5); Red Cell Distribution Width 15.9 % (9.3-17.3); White Blood Count 12.6 T/CUMM (4-12)
[2019-07-06 10:59] LABS: Apearance,Urine Slightly Hazy (Clear); Bilirubin,Urine Small mg/dL (Negative); Blood, Urine Negative (Negative); Glucose,Urine (UA) Negative (Negative); Hyaline Casts,Urine 15 /LPF (0-3); Ketones,Urine 5 mg/dL (Negative); Mucus,Urine Occasional /LPF (Occasional); Nitrite,Urine Negative (Negative); Protein,Urine 30 MG/DL; RBC,Urine 1 /HPF (0-4); Squamous Epithelial Cell,Urine Few /HPF (0-10); Urine Color Yellow (Yellow); Urine Specific Gravity 1.027 (1.001-1.035); WBC,Urine 17 /HPF (0-6)
[2019-07-06 11:13] LABS: Albumin 3.6 G/DL (3.4-5.0); Bilirubin,Total 0.5 MG/DL (0.2-1.0); Calcium 9.4 MG/DL (8.5-10.1); Osmolality,Calculated 291.3 MOS/KG (273-304)
[2019-07-06] MEDS ORDERED: ONDANSETRON 4 MG/2 ML VIAL IV PRN (14:07)
[2019-07-06] MEDS ORDERED: MORPHINE 4 MG/1 ML VIAL IV PRN (14:07)
[2019-07-06] MEDS ORDERED: PROMETHAZINE 25 MG/1 ML VIAL IM PRN (14:07)
[2019-07-06] MEDS ORDERED: diphenhydrAMINE CAP 25 MG CAPSULE PO PRN (14:08)
[2019-07-06] MEDS ORDERED: NITROGLYCERIN SL 0.4 MG TABLET SL PRN (14:08)
[2019-07-06] MEDS ORDERED: ACETAMINOPHEN 325 MG TABLET PO PRN (14:08)
[2019-07-06] MEDS ORDERED: guaiFENesin/DM ER 600-30 MG TABLET PO PRN (14:08)
[2019-07-06] MEDS ORDERED: DICLOFENAC 1% GEL 100 GM TUBE TOP PRN (14:08)
[2019-07-06] MEDS ORDERED: CYCLOBENZAPRINE 10 MG TABLET PO PRN (14:08)
[2019-07-06 15:52] LABS: Troponin I < 0.015 NG/ML (0.00-0.045)
[2019-07-06] MEDS: ALBUTEROL/IPRATROPIUM 3 ML NEB RESP TX SCH ×2 (16:18→23:00)
[2019-07-06] MEDS: GABAPENTIN 100 MG CAPSULE PO SCH ×2 (17:25→21:19)
[2019-07-06] MEDS: SODIUM CHLORIDE 0.9% 1,000 ML IV SCH (17:38)
[2019-07-06] MEDS: PIPERACILLIN/TAZOBACTAM 3,375 MG in SODIUM CHLORIDE 0.9% 100 ML IV SCH (17:38)
[2019-07-06] MEDS ORDERED: DICLOFENAC SODIUM 50 MG TABLET PO PRN (21:00)
[2019-07-06] MEDS: APIXABAN 2.5 MG TABLET PO SCH (21:18)
[2019-07-06] MEDS: SIMVASTATIN 80 MG TABLET PO SCH (21:19)
[2019-07-06] MEDS: CARVEDILOL 25 MG TABLET PO SCH (21:19)
[2019-07-06] MEDS: URSODIOL 300 MG CAPSULE PO SCH (21:19)
[2019-07-06] MEDS: MONTELUKAST 10 MG TABLET PO SCH (21:19)
[2019-07-06] MEDS: Umeclidinium-Vilanterol [Anoro Ellipta] 1 inh INH SCH (21:20)
[2019-07-06] MEDS: THEOPHYLLINE 5.33 MG/ML 30 ML/BOTTLE PO SCH (21:20)
[2019-07-07] MEDS: PIPERACILLIN/TAZOBACTAM 3,375 MG in SODIUM CHLORIDE 0.9% 100 ML IV SCH ×3 (01:03→18:14)
[2019-07-07 06:40] LABS: Bilirubin,Total 0.9 MG/DL (0.2-1.0); Total Protein 6.1 G/DL (6.4-8.3)
[2019-07-07 06:44] LABS: Troponin I < 0.015 NG/ML (0.00-0.045)
[2019-07-07 06:52] LABS: Basophils % 0.4 % (0.0-0.8); Eosinophils # 0.4 10*3/uL (0.0-0.87); Eosinophils % 6.6 % (0.00-10.9); Hematocrit 36.2 VOL% (35.7-47.0); Immature Granulocytes % 0.4 %; Immature Granulocytes Absolute 0.02 #; Lymphocytes # 1.7 10*3/uL (1.4-4.0); Lymphocytes % 29.9 % (21.3-54.2); Mean Corpuscular HGB Conc 30.7 GM/DL (32-36); Mean Corpuscular Volume 86.6 FL (87-102); Mean Platelet Volume 9.2 FL (9.6-12.0); Monocytes % 7.3 % (1.7-12.7); Neutrophils % 55.4 % (38.7-73.9); Platelet Count 293 T/CUMM (130-400); Red Blood Count 4.18 MC/CUMM (3.8-5.5); White Blood Count 5.6 T/CUMM (4-12)
[2019-07-07 06:53] LABS: Hemoglobin 11.1 GM/DL (12.0-16.0)
[2019-07-07] MEDS: ALBUTEROL/IPRATROPIUM 3 ML NEB RESP TX SCH ×2 (07:42→12:04)
[2019-07-07] MEDS: SODIUM CHLORIDE 0.9% 1,000 ML IV SCH ×2 (09:05→18:16)
[2019-07-07] MEDS: CARVEDILOL 25 MG TABLET PO SCH ×2 (10:27→16:29)
[2019-07-07] MEDS: APIXABAN 2.5 MG TABLET PO SCH ×2 (10:42→21:34)
[2019-07-07] MEDS: URSODIOL 300 MG CAPSULE PO SCH ×2 (10:42→21:35)
[2019-07-07] MEDS: DILTIAZEM CD 120 MG CAPSULE PO SCH (10:42)
[2019-07-07] MEDS: THEOPHYLLINE 5.33 MG/ML 30 ML/BOTTLE PO SCH ×2 (10:43→23:19)
[2019-07-07] MEDS: GABAPENTIN 100 MG CAPSULE PO SCH ×3 (10:43→21:34)
[2019-07-07] MEDS: MAGNESIUM OXIDE 400 MG TABLET PO SCH (10:43)
[2019-07-07] MEDS: ASCORBIC ACID 500 MG TABLET PO SCH (10:43)
[2019-07-07] MEDS: CLOPIDOGREL 75 MG TABLET PO SCH (10:43)
[2019-07-07] MEDS: Umeclidinium-Vilanterol [Anoro Ellipta] 1 inh INH SCH ×2 (10:43→23:19)
[2019-07-07] MEDS: MONTELUKAST 10 MG TABLET PO SCH ×2 (10:43→23:19)
[2019-07-07] MEDS: SIMVASTATIN 80 MG TABLET PO SCH (21:34)
[2019-07-08] MEDS: ALBUTEROL/IPRATROPIUM 3 ML NEB RESP TX SCH ×4 (00:07→23:05)
[2019-07-08] MEDS: PIPERACILLIN/TAZOBACTAM 3,375 MG in SODIUM CHLORIDE 0.9% 100 ML IV SCH ×3 (02:32→08:31)
[2019-07-08 05:38] LABS: Basophils % 0.5 % (0.0-0.8); Eosinophils # 0.4 10*3/uL (0.0-0.87); Eosinophils % 7.4 % (0.00-10.9); Hematocrit 34.3 VOL% (35.7-47.0); Hemoglobin 10.3 GM/DL (12.0-16.0); Immature Granulocytes % 0.3 %; Immature Granulocytes Absolute 0.02 #; Lymphocytes # 1.7 10*3/uL (1.4-4.0); Lymphocytes % 28.7 % (21.3-54.2); Mean Corpuscular Volume 88.6 FL (87-102); Mean Platelet Volume 9.3 FL (9.6-12.0); Monocytes % 6.9 % (1.7-12.7); Neutrophils % 56.2 % (38.7-73.9); Platelet Count 265 T/CUMM (130-400); Red Blood Count 3.87 MC/CUMM (3.8-5.5); Red Cell Distribution Width 15.7 % (9.3-17.3); White Blood Count 5.8 T/CUMM (4-12)
[2019-07-08 06:10] LABS: Albumin 2.7 G/DL (3.4-5.0); Bilirubin,Total 0.5 MG/DL (0.2-1.0); Calcium 8.8 MG/DL (8.5-10.1); Osmolality,Calculated 293.4 MOS/KG (273-304); Total Protein 5.4 G/DL (6.4-8.3)
[2019-07-08] MEDS: Umeclidinium-Vilanterol [Anoro Ellipta] 1 inh INH SCH (08:04)
[2019-07-08] MEDS: DILTIAZEM CD 120 MG CAPSULE PO SCH (08:05)
[2019-07-08] MEDS: MAGNESIUM OXIDE 400 MG TABLET PO SCH (08:05)
[2019-07-08] MEDS: URSODIOL 300 MG CAPSULE PO SCH ×2 (08:05→21:54)
[2019-07-08] MEDS: CLOPIDOGREL 75 MG TABLET PO SCH (08:05)
[2019-07-08] MEDS: SODIUM CHLORIDE 0.9% 1,000 ML IV SCH (08:05)
[2019-07-08] MEDS: MONTELUKAST 10 MG TABLET PO SCH ×2 (08:06→21:57)
[2019-07-08] MEDS: CARVEDILOL 25 MG TABLET PO SCH ×2 (08:06→17:11)
[2019-07-08] MEDS: APIXABAN 2.5 MG TABLET PO SCH ×2 (08:06→21:57)
[2019-07-08] MEDS: ASCORBIC ACID 500 MG TABLET PO SCH (08:06)
[2019-07-08] MEDS: THEOPHYLLINE 5.33 MG/ML 30 ML/BOTTLE PO SCH (08:07)
[2019-07-08] MEDS: GABAPENTIN 100 MG CAPSULE PO SCH ×3 (08:07→21:58)
[2019-07-08] MEDS ORDERED: KETOROLAC 30 MG/1 ML VIAL IV ONE (10:47)
[2019-07-08] MEDS: AMOXICILLIN 500 MG CAPSULE PO SCH (21:54)
[2019-07-08] MEDS: SIMVASTATIN 80 MG TABLET PO SCH (22:05)
[2019-07-09] MEDS: THEOPHYLLINE 5.33 MG/ML 30 ML/BOTTLE PO SCH ×2 (01:09→08:14)
[2019-07-09] MEDS: Umeclidinium-Vilanterol [Anoro Ellipta] 1 inh INH SCH ×2 (01:10→08:14)
[2019-07-09] MEDS: SODIUM CHLORIDE 0.9% 1,000 ML IV SCH (01:13)
[2019-07-09 04:33] LABS: Alanine Aminotransferase < 9 U/L (13-56); Albumin 2.6 G/DL (3.4-5.0); Alkaline Phosphatase 103 U/L (45-117); Aspartate Amino Transferase 6 U/L (0-37); Blood Urea Nitrogen 16 MG/DL (7-18); Calcium 8.3 MG/DL (8.5-10.1); Glucose 92 MG/DL (74-106); Osmolality,Calculated 292.4 MOS/KG (273-304); Total Protein 5.1 G/DL (6.4-8.3)
[2019-07-09 04:36] LABS: Basophils % 0.5 % (0.0-0.8); Eosinophils # 0.5 10*3/uL (0.0-0.87); Eosinophils % 7.6 % (0.00-10.9); Hematocrit 31.8 VOL% (35.7-47.0); Immature Granulocytes % 0.3 %; Immature Granulocytes Absolute 0.02 #; Lymphocytes # 2.5 10*3/uL (1.4-4.0); Lymphocytes % 39.8 % (21.3-54.2); Mean Corpuscular HGB Conc 29.6 GM/DL (32-36); Mean Corpuscular Volume 90.1 FL (87-102); Mean Platelet Volume 9.2 FL (9.6-12.0); Monocytes % 8.1 % (1.7-12.7); Neutrophils % 43.7 % (38.7-73.9); Platelet Count 245 T/CUMM (130-400); Red Blood Count 3.53 MC/CUMM (3.8-5.5); Red Cell Distribution Width 15.8 % (9.3-17.3); White Blood Count 6.2 T/CUMM (4-12)
[2019-07-09 04:39] LABS: Hemoglobin 9.4 GM/DL (12.0-16.0)
[2019-07-09] MEDS: ALBUTEROL/IPRATROPIUM 3 ML NEB RESP TX SCH (07:15)
[2019-07-09 08:06] VITALS: BP 102/64
[2019-07-09] MEDS: CLOPIDOGREL 75 MG TABLET PO SCH (08:11)
[2019-07-09] MEDS: AMOXICILLIN 500 MG CAPSULE PO SCH (08:11)
[2019-07-09] MEDS: CARVEDILOL 25 MG TABLET PO SCH (08:11)
[2019-07-09] MEDS: DILTIAZEM CD 120 MG CAPSULE PO SCH (08:11)
[2019-07-09] MEDS: MONTELUKAST 10 MG TABLET PO SCH (08:12)
[2019-07-09] MEDS: APIXABAN 2.5 MG TABLET PO SCH (08:12)
[2019-07-09] MEDS: URSODIOL 300 MG CAPSULE PO SCH (08:12)
[2019-07-09] MEDS: MAGNESIUM OXIDE 400 MG TABLET PO SCH (08:12)
[2019-07-09] MEDS: GABAPENTIN 100 MG CAPSULE PO SCH (08:12)
[2019-07-09] MEDS: ASCORBIC ACID 500 MG TABLET PO SCH (08:12)
== END 2019-07-09 11:43 | disposition home health service (06) | DRG 690 ==
LOC: N.ED 09:30 → N.EDINP 15:56 → N.5E 16:56
PROVIDERS: ADMIT Internal Medicine; ATTEND Internal Medicine

== ENCOUNTER 2019-08-10 10:17 | Inpatient (IN) ==
[2019-08-10] MEDS ORDERED: ALBUTEROL/IPRATROPIUM 3 ML NEB RESP TX STA (11:02)
[2019-08-10] MEDS ORDERED: FUROSEMIDE 40 MG/4 ML VIAL IV STA (11:02)
[2019-08-10 11:35] LABS: Basophils % 0.5 % (0.0-0.8); Eosinophils # 0.3 10*3/uL (0.0-0.87); Eosinophils % 3.4 % (0.00-10.9); Hematocrit 30.8 VOL% (35.7-47.0); Hemoglobin 9.3 GM/DL (12.0-16.0); Immature Granulocytes % 0.3 %; Immature Granulocytes Absolute 0.02 #; Lymphocytes % 14.1 % (21.3-54.2); Mean Corpuscular HGB Conc 30.2 GM/DL (32-36); Mean Corpuscular Volume 87.3 FL (87-102); Mean Platelet Volume 9.6 FL (9.6-12.0); Monocytes % 5.8 % (1.7-12.7); Neutrophils % 75.9 % (38.7-73.9); Platelet Count 214 T/CUMM (130-400); Red Blood Count 3.53 MC/CUMM (3.8-5.5); White Blood Count 7.3 T/CUMM (4-12)
[2019-08-10 11:41] LABS: INR 1.1; PT Patient Result 11.8 SECS (9.6-12.2)
[2019-08-10] MEDS ORDERED: LEVOFLOXACIN INJ 500 MG in PREMIX 1 EACH IV STA (11:43)
[2019-08-10 11:55] LABS: Albumin 3.3 G/DL (3.4-5.0); Bilirubin,Total 0.7 MG/DL (0.2-1.0); Calcium 8.3 MG/DL (8.5-10.1); Osmolality,Calculated 275.8 MOS/KG (273-304); Total Protein 6.3 G/DL (6.4-8.3)
[2019-08-10] MEDS ORDERED: DOCUSATE SODIUM 100 MG CAPSULE PO PRN (13:53)
[2019-08-10 14:42] LABS: Risk Ratio 1.91; Thyroid Stimulating Hormone 0.88 uIU/ml (0.358-3.74); VLDL CHOLESTEROL 27.2 MG/DL
[2019-08-10] MEDS ORDERED: NITROGLYCERIN SL 0.4 MG TABLET SL PRN (14:51)
[2019-08-10] MEDS: GABAPENTIN 100 MG CAPSULE PO SCH ×2 (16:21→21:14)
[2019-08-10] MEDS: cefTRIAXone 2,000 MG in SYRINGE 1 EACH IV SCH (16:21)
[2019-08-10] MEDS: ALBUTEROL/IPRATROPIUM 3 ML NEB RESP TX PRN (18:00)
[2019-08-10] MEDS: ACETAMINOPHEN 325 MG TABLET PO PRN (19:07)
[2019-08-10] MEDS: SIMVASTATIN 80 MG TABLET PO SCH (21:14)
[2019-08-10] MEDS: APIXABAN 2.5 MG TABLET PO SCH (21:14)
[2019-08-10] MEDS: CYCLOBENZAPRINE 10 MG TABLET PO PRN (21:17)
[2019-08-11] MEDS: ACETAMINOPHEN 325 MG TABLET PO PRN ×2 (03:07→10:35)
[2019-08-11 05:37] LABS: Basophils % 0.5 % (0.0-0.8); Eosinophils # 0.3 10*3/uL (0.0-0.87); Eosinophils % 4.7 % (0.00-10.9); Hematocrit 30.5 VOL% (35.7-47.0); Immature Granulocytes % 0.3 %; Immature Granulocytes Absolute 0.02 #; Lymphocytes # 1.6 10*3/uL (1.4-4.0); Lymphocytes % 27.1 % (21.3-54.2); Mean Corpuscular HGB Conc 29.5 GM/DL (32-36); Mean Corpuscular Volume 88.4 FL (87-102); Mean Platelet Volume 9.9 FL (9.6-12.0); Neutrophils % 59.4 % (38.7-73.9); Platelet Count 135 T/CUMM (130-400); Red Blood Count 3.45 MC/CUMM (3.8-5.5); White Blood Count 5.7 T/CUMM (4-12)
[2019-08-11 06:01] LABS: Calcium 8.6 MG/DL (8.5-10.1); Osmolality,Calculated 279.5 MOS/KG (273-304)
[2019-08-11 06:10] LABS: Eosinophils 3 % (0-10); Hypochromasia 1+; Lymphocytes 30 % (20-55); Platelet Estimate Adequate; Segmented Neutrophils 62 % (50-85); Total Cells Counted 100
[2019-08-11] MEDS: PANTOPRAZOLE 40 MG TABLET PO SCH (09:27)
[2019-08-11] MEDS: CLOPIDOGREL 75 MG TABLET PO SCH (09:27)
[2019-08-11] MEDS: MAGNESIUM OXIDE 400 MG TABLET PO SCH (09:27)
[2019-08-11] MEDS: GABAPENTIN 100 MG CAPSULE PO SCH ×3 (09:27→20:14)
[2019-08-11] MEDS: APIXABAN 2.5 MG TABLET PO SCH ×2 (09:27→20:14)
[2019-08-11] MEDS: AZITHROMYCIN INJ 500 MG in SODIUM CHLORIDE 0.9% 250 ML IV SCH (09:28)
[2019-08-11] MEDS: MULTIVITAMIN (BEROCCA) TABLET PO SCH (09:28)
[2019-08-11] MEDS: DILTIAZEM CD 120 MG CAPSULE PO SCH (09:28)
[2019-08-11] MEDS: ALBUTEROL/IPRATROPIUM 3 ML NEB RESP TX PRN (10:00)
[2019-08-11] MEDS: ONDANSETRON 4 MG/2 ML VIAL IV PRN (10:35)
[2019-08-11] MEDS: FUROSEMIDE 40 MG/4 ML VIAL IV SCH (11:07)
[2019-08-11] MEDS: cefTRIAXone 2,000 MG in SYRINGE 1 EACH IV SCH (12:13)
[2019-08-11] MEDS: SIMVASTATIN 80 MG TABLET PO SCH (20:13)
[2019-08-11] MEDS: ALBUTEROL 2.5 MG/3 ML NEB RESP TX SCH (20:20)
[2019-08-11] MEDS ORDERED: NON-FORMULARY MEDICATION (Umeclidinium-Vilanterol [Anoro Ellipta] 1 inh) INH SCH (21:00)
[2019-08-12] MEDS ORDERED: diphenhydrAMINE CAP 25 MG CAPSULE PO ONE (01:33)
[2019-08-12 05:35] LABS: Basophils % 0.4 % (0.0-0.8); Eosinophils # 0.4 10*3/uL (0.0-0.87); Eosinophils % 5.3 % (0.00-10.9); Hematocrit 29.8 VOL% (35.7-47.0); Hemoglobin 8.8 GM/DL (12.0-16.0); Immature Granulocytes % 0.3 %; Immature Granulocytes Absolute 0.02 #; Lymphocytes # 2.2 10*3/uL (1.4-4.0); Lymphocytes % 31.3 % (21.3-54.2); Mean Corpuscular HGB Conc 29.5 GM/DL (32-36); Mean Corpuscular Volume 88.4 FL (87-102); Mean Platelet Volume 9.6 FL (9.6-12.0); Monocytes % 9.4 % (1.7-12.7); Neutrophils % 53.3 % (38.7-73.9); Platelet Count 213 T/CUMM (130-400); Red Blood Count 3.37 MC/CUMM (3.8-5.5); Red Cell Distribution Width 16.2 % (9.3-17.3)
[2019-08-12 05:50] LABS: Anisocytosis 1+; Hypochromasia 1+; Microcytosis 1+; Polychromasia Slight
[2019-08-12 05:51] LABS: Platelet Estimate Normal
[2019-08-12] MEDS: ALBUTEROL 2.5 MG/3 ML NEB RESP TX SCH ×2 (07:40→20:13)
[2019-08-12] MEDS: ONDANSETRON 4 MG/2 ML VIAL IV PRN (08:21)
[2019-08-12] MEDS: DILTIAZEM CD 120 MG CAPSULE PO SCH (08:27)
[2019-08-12] MEDS: CLOPIDOGREL 75 MG TABLET PO SCH (08:27)
[2019-08-12] MEDS: APIXABAN 2.5 MG TABLET PO SCH ×2 (08:28→21:29)
[2019-08-12] MEDS: MAGNESIUM OXIDE 400 MG TABLET PO SCH (08:28)
[2019-08-12] MEDS: FUROSEMIDE 40 MG/4 ML VIAL IV SCH (08:29)
[2019-08-12] MEDS: MULTIVITAMIN (BEROCCA) TABLET PO SCH (08:29)
[2019-08-12] MEDS: PANTOPRAZOLE 40 MG TABLET PO SCH (08:29)
[2019-08-12] MEDS: GABAPENTIN 100 MG CAPSULE PO SCH ×3 (08:29→21:28)
[2019-08-12] MEDS: AZITHROMYCIN INJ 500 MG in SODIUM CHLORIDE 0.9% 250 ML IV SCH (08:29)
[2019-08-12] MEDS: cefTRIAXone 2,000 MG in SYRINGE 1 EACH IV SCH (09:33)
[2019-08-12] MEDS: ALBUTEROL/IPRATROPIUM 3 ML NEB RESP TX PRN (20:11)
[2019-08-12] MEDS: SIMVASTATIN 80 MG TABLET PO SCH (21:28)
[2019-08-12 22:41] LABS: ABG Base Excess 6.9 MMOL/L (-2.5-2.5); ABG HCO3 30.6 MMOL/L (20-26); ABG Oxygen Saturation 87.1 % (95-100); ABG PCO2 65.1 MM HG (35-48); ABG PH 7.332 (7.35-7.45); ABG PO2 58.3 MM HG (80-95); ABG TCO2 32.2 MMOL/L (23-27)
[2019-08-13 05:20] LABS: Basophils % 0.5 % (0.0-0.8); Eosinophils # 0.4 10*3/uL (0.0-0.87); Eosinophils % 5.1 % (0.00-10.9); Hematocrit 29.5 VOL% (35.7-47.0); Hemoglobin 8.6 GM/DL (12.0-16.0); Immature Granulocytes % 0.3 %; Immature Granulocytes Absolute 0.02 #; Lymphocytes # 2.1 10*3/uL (1.4-4.0); Lymphocytes % 28.6 % (21.3-54.2); Mean Corpuscular HGB Conc 29.2 GM/DL (32-36); Mean Corpuscular Volume 88.6 FL (87-102); Mean Platelet Volume 9.6 FL (9.6-12.0); Monocytes % 9.2 % (1.7-12.7); Neutrophils % 56.3 % (38.7-73.9); Platelet Count 234 T/CUMM (130-400); Red Blood Count 3.33 MC/CUMM (3.8-5.5); Red Cell Distribution Width 16.4 % (9.3-17.3); White Blood Count 7.3 T/CUMM (4-12)
[2019-08-13] MEDS: ALBUTEROL 2.5 MG/3 ML NEB RESP TX SCH ×2 (07:03→19:40)
[2019-08-13] MEDS: GABAPENTIN 100 MG CAPSULE PO SCH ×3 (09:07→21:06)
[2019-08-13] MEDS: MAGNESIUM OXIDE 400 MG TABLET PO SCH (09:07)
[2019-08-13] MEDS: DILTIAZEM CD 120 MG CAPSULE PO SCH (09:07)
[2019-08-13] MEDS: CLOPIDOGREL 75 MG TABLET PO SCH (09:08)
[2019-08-13] MEDS: APIXABAN 2.5 MG TABLET PO SCH ×2 (09:08→21:06)
[2019-08-13] MEDS: FUROSEMIDE 40 MG/4 ML VIAL IV SCH ×2 (09:08→16:02)
[2019-08-13] MEDS: cefTRIAXone 2,000 MG in SYRINGE 1 EACH IV SCH (09:08)
[2019-08-13] MEDS: MULTIVITAMIN (BEROCCA) TABLET PO SCH (09:08)
[2019-08-13] MEDS: PANTOPRAZOLE 40 MG TABLET PO SCH (09:08)
[2019-08-13] MEDS: AZITHROMYCIN INJ 500 MG in SODIUM CHLORIDE 0.9% 250 ML IV SCH (09:09)
[2019-08-13 09:49] LABS: Calcium 8.2 MG/DL (8.5-10.1); Osmolality,Calculated 284.3 MOS/KG (273-304)
[2019-08-13] MEDS: cefTAZidime 1,000 MG in SYRINGE 1 EACH IV SCH ×2 (13:14→22:10)
[2019-08-13] MEDS: methylPREDNISolone SOD SUC 40 MG/1 ML VIAL IV SCH ×2 (16:01→22:10)
[2019-08-13] MEDS: SIMVASTATIN 80 MG TABLET PO SCH (21:05)
[2019-08-14] MEDS: CYCLOBENZAPRINE 10 MG TABLET PO PRN (02:16)
[2019-08-14] MEDS: ACETAMINOPHEN 325 MG TABLET PO PRN ×2 (02:17→09:29)
[2019-08-14] MEDS: cefTAZidime 1,000 MG in SYRINGE 1 EACH IV SCH ×3 (05:03→21:48)
[2019-08-14] MEDS: ALBUTEROL 2.5 MG/3 ML NEB RESP TX SCH ×2 (07:20→20:05)
[2019-08-14] MEDS ORDERED: AZITHROMYCIN 250 MG TABLET PO SCH (09:00)
[2019-08-14] MEDS: DILTIAZEM CD 120 MG CAPSULE PO SCH (09:17)
[2019-08-14] MEDS: GABAPENTIN 100 MG CAPSULE PO SCH ×3 (09:17→21:48)
[2019-08-14] MEDS: MULTIVITAMIN (BEROCCA) TABLET PO SCH (09:17)
[2019-08-14] MEDS: APIXABAN 2.5 MG TABLET PO SCH ×2 (09:17→21:48)
[2019-08-14] MEDS: MAGNESIUM OXIDE 400 MG TABLET PO SCH (09:17)
[2019-08-14] MEDS: CLOPIDOGREL 75 MG TABLET PO SCH (09:17)
[2019-08-14] MEDS: FUROSEMIDE 40 MG/4 ML VIAL IV SCH ×2 (09:18→15:17)
[2019-08-14 09:23] LABS: Hematocrit 31.3 VOL% (35.7-47.0); Hemoglobin 9.1 GM/DL (12.0-16.0); Immature Granulocytes % 0.3 %; Immature Granulocytes Absolute 0.01 #; Lymphocytes # 0.7 10*3/uL (1.4-4.0); Lymphocytes % 23.2 % (21.3-54.2); Mean Corpuscular HGB Conc 29.1 GM/DL (32-36); Mean Corpuscular Volume 88.7 FL (87-102); Mean Platelet Volume 9.6 FL (9.6-12.0); Monocytes % 1.3 % (1.7-12.7); Neutrophils % 75.2 % (38.7-73.9); Platelet Count 204 T/CUMM (130-400); Red Blood Count 3.53 MC/CUMM (3.8-5.5); Red Cell Distribution Width 16.2 % (9.3-17.3); White Blood Count 3.2 T/CUMM (4-12)
[2019-08-14] MEDS: methylPREDNISolone SOD SUC 40 MG/1 ML VIAL IV SCH ×3 (09:24→23:45)
[2019-08-14] MEDS: PANTOPRAZOLE 40 MG TABLET PO SCH (09:31)
[2019-08-14 09:56] LABS: Calcium 9.2 MG/DL (8.5-10.1); Osmolality,Calculated 298.8 MOS/KG (273-304)
[2019-08-14 16:39] LABS: ABG Base Excess 12.3 MMOL/L (-2.5-2.5); ABG HCO3 38.1 MMOL/L (20-26); ABG Oxygen Saturation 90.8 % (95-100); ABG PCO2 56.8 MM HG (35-48); ABG PH 7.444 (7.35-7.45); ABG PO2 60.8 MM HG (80-95); ABG TCO2 39.8 MMOL/L (23-27)
[2019-08-14] MEDS: LACTULOSE 20 GM/30 ML UDCUP PO SCH (21:48)
[2019-08-14] MEDS: DOCUSATE SODIUM 100 MG CAPSULE PO SCH (21:48)
[2019-08-14] MEDS: POLYETHYLENE GLYCOL POWDER 17 GM PACK PO SCH (21:48)
[2019-08-14] MEDS: SIMVASTATIN 80 MG TABLET PO SCH (21:48)
[2019-08-15] MEDS: ACETAMINOPHEN 325 MG TABLET PO PRN (01:54)
[2019-08-15 03:30] LABS: Allen Test Positive
[2019-08-15 03:31] LABS: ABG Base Excess 11.2 MMOL/L (-2.5-2.5); ABG HCO3 34.8 MMOL/L (20-26); ABG Oxygen Saturation 85.9 % (95-100); ABG PCO2 53.4 MM HG (35-48); ABG PH 7.448 (7.35-7.45); ABG PO2 50.2 MM HG (80-95); ABG TCO2 34.1 MMOL/L (23-27)
[2019-08-15] MEDS: cefTAZidime 1,000 MG in SYRINGE 1 EACH IV SCH ×3 (06:00→20:51)
[2019-08-15] MEDS: ALBUTEROL 2.5 MG/3 ML NEB RESP TX SCH ×2 (07:48→20:27)
[2019-08-15] MEDS: PANTOPRAZOLE 40 MG TABLET PO SCH (08:47)
[2019-08-15] MEDS: DILTIAZEM CD 120 MG CAPSULE PO SCH (08:47)
[2019-08-15] MEDS: APIXABAN 2.5 MG TABLET PO SCH ×2 (08:47→20:51)
[2019-08-15] MEDS: MAGNESIUM OXIDE 400 MG TABLET PO SCH (08:47)
[2019-08-15] MEDS: CLOPIDOGREL 75 MG TABLET PO SCH (08:47)
[2019-08-15] MEDS: DOCUSATE SODIUM 100 MG CAPSULE PO SCH ×2 (08:47→20:51)
[2019-08-15] MEDS: MULTIVITAMIN (BEROCCA) TABLET PO SCH (08:47)
[2019-08-15] MEDS: LACTULOSE 20 GM/30 ML UDCUP PO SCH ×2 (08:48→20:51)
[2019-08-15] MEDS: FUROSEMIDE 40 MG/4 ML VIAL IV SCH ×2 (08:48→18:21)
[2019-08-15] MEDS: GABAPENTIN 100 MG CAPSULE PO SCH ×3 (08:48→20:54)
[2019-08-15] MEDS: methylPREDNISolone SOD SUC 40 MG/1 ML VIAL IV SCH ×2 (08:48→18:20)
[2019-08-15] MEDS: POLYETHYLENE GLYCOL POWDER 17 GM PACK PO SCH ×3 (08:49→20:52)
[2019-08-15] MEDS: SIMVASTATIN 80 MG TABLET PO SCH (20:51)
[2019-08-16] MEDS: methylPREDNISolone SOD SUC 40 MG/1 ML VIAL IV SCH ×2 (00:25→06:26)
[2019-08-16] MEDS: ACETAMINOPHEN 325 MG TABLET PO PRN (03:31)
[2019-08-16] MEDS: cefTAZidime 1,000 MG in SYRINGE 1 EACH IV SCH ×3 (05:23→21:14)
[2019-08-16] MEDS: ALBUTEROL 2.5 MG/3 ML NEB RESP TX SCH ×2 (07:53→19:38)
[2019-08-16] MEDS: POLYETHYLENE GLYCOL POWDER 17 GM PACK PO SCH ×3 (09:11→21:09)
[2019-08-16] MEDS: GABAPENTIN 100 MG CAPSULE PO SCH ×3 (09:11→21:09)
[2019-08-16] MEDS: CLOPIDOGREL 75 MG TABLET PO SCH (09:11)
[2019-08-16] MEDS: MAGNESIUM OXIDE 400 MG TABLET PO SCH (09:12)
[2019-08-16] MEDS: DOCUSATE SODIUM 100 MG CAPSULE PO SCH ×2 (09:12→21:09)
[2019-08-16] MEDS: LACTULOSE 20 GM/30 ML UDCUP PO SCH ×2 (09:12→21:07)
[2019-08-16] MEDS: MULTIVITAMIN (BEROCCA) TABLET PO SCH (09:12)
[2019-08-16] MEDS: APIXABAN 2.5 MG TABLET PO SCH ×2 (09:12→21:09)
[2019-08-16] MEDS: PANTOPRAZOLE 40 MG TABLET PO SCH (09:12)
[2019-08-16] MEDS: DILTIAZEM CD 120 MG CAPSULE PO SCH (09:12)
[2019-08-16] MEDS: FUROSEMIDE 40 MG/4 ML VIAL IV SCH ×2 (09:13→15:23)
[2019-08-16 09:14] LABS: Hematocrit 31.5 VOL% (35.7-47.0); Hemoglobin 9.2 GM/DL (12.0-16.0); Immature Granulocytes % 0.6 %; Immature Granulocytes Absolute 0.04 #; Lymphocytes # 0.7 10*3/uL (1.4-4.0); Lymphocytes % 9.3 % (21.3-54.2); Mean Corpuscular HGB Conc 29.2 GM/DL (32-36); Monocytes % 3.7 % (1.7-12.7); NRBC # 0.02 10*3/uL; Neutrophils % 86.4 % (38.7-73.9); Platelet Count 228 T/CUMM (130-400); Red Blood Count 3.58 MC/CUMM (3.8-5.5); Red Cell Distribution Width 15.9 % (9.3-17.3); White Blood Count 7.1 T/CUMM (4-12)
[2019-08-16 09:37] LABS: Calcium 8.8 MG/DL (8.5-10.1); Osmolality,Calculated 295.3 MOS/KG (273-304)
[2019-08-16] MEDS: ONDANSETRON 4 MG/2 ML VIAL IV PRN (15:24)
[2019-08-16] MEDS: CYCLOBENZAPRINE 10 MG TABLET PO PRN (21:08)
[2019-08-16] MEDS: predniSONE 20 MG TABLET PO SCH (21:08)
[2019-08-16] MEDS: carvediloL 25 MG TABLET PO SCH (21:09)
[2019-08-16] MEDS: SIMVASTATIN 80 MG TABLET PO SCH (21:09)
[2019-08-17] MEDS: cefTAZidime 1,000 MG in SYRINGE 1 EACH IV SCH (05:18)
[2019-08-17 05:28] LABS: Hematocrit 30.9 VOL% (35.7-47.0); Immature Granulocytes % 0.6 %; Immature Granulocytes Absolute 0.04 #; Lymphocytes # 0.9 10*3/uL (1.4-4.0); Lymphocytes % 12.9 % (21.3-54.2); Mean Corpuscular HGB Conc 29.1 GM/DL (32-36); Mean Corpuscular Volume 88.5 FL (87-102); Mean Platelet Volume 9.5 FL (9.6-12.0); Monocytes % 6.1 % (1.7-12.7); Neutrophils % 80.4 % (38.7-73.9); Platelet Count 203 T/CUMM (130-400); Red Blood Count 3.49 MC/CUMM (3.8-5.5); Red Cell Distribution Width 15.7 % (9.3-17.3); White Blood Count 6.7 T/CUMM (4-12)
[2019-08-17 06:01] LABS: Calcium 8.2 MG/DL (8.5-10.1); Osmolality,Calculated 293.5 MOS/KG (273-304)
[2019-08-17] MEDS: ALBUTEROL 2.5 MG/3 ML NEB RESP TX SCH (07:15)
[2019-08-17] MEDS: predniSONE 20 MG TABLET PO SCH (09:15)
[2019-08-17] MEDS: carvediloL 25 MG TABLET PO SCH (09:15)
[2019-08-17] MEDS: APIXABAN 2.5 MG TABLET PO SCH (09:15)
[2019-08-17] MEDS: PANTOPRAZOLE 40 MG TABLET PO SCH (09:15)
[2019-08-17] MEDS: CLOPIDOGREL 75 MG TABLET PO SCH (09:16)
[2019-08-17] MEDS: MAGNESIUM OXIDE 400 MG TABLET PO SCH (09:16)
[2019-08-17] MEDS: DILTIAZEM CD 120 MG CAPSULE PO SCH (09:16)
[2019-08-17] MEDS: POTASSIUM CHLORIDE 20 MEQ TABLET PO PRN ×2 (09:16→11:22)
[2019-08-17] MEDS: MULTIVITAMIN (BEROCCA) TABLET PO SCH (09:16)
[2019-08-17] MEDS: DOCUSATE SODIUM 100 MG CAPSULE PO SCH (09:16)
[2019-08-17] MEDS: POLYETHYLENE GLYCOL POWDER 17 GM PACK PO SCH (09:17)
[2019-08-17] MEDS: GABAPENTIN 100 MG CAPSULE PO SCH (09:17)
[2019-08-17] MEDS: LACTULOSE 20 GM/30 ML UDCUP PO SCH (09:17)
[2019-08-17] MEDS: FUROSEMIDE 40 MG/4 ML VIAL IV SCH (09:20)
[2019-08-17 11:35] VITALS: BP 119/66
== END 2019-08-17 12:40 | disposition home health service (06) | DRG 177 ==
LOC: EDUNIT# → EDBD → N.ED 10:17 → N.EDINP 12:44 → N.2E 12:58
PROVIDERS: ADMIT Hospitalist; ATTEND Hospitalist

== ENCOUNTER 2019-09-03 23:09 | Inpatient (IN) ==
[2019-09-04] MEDS ORDERED: DEXTROSE 50% 25 GM/50 ML VIAL IV PRN (01:35)
[2019-09-04] MEDS ORDERED: GLUCAGON 1 MG VIAL IM PRN (01:35)
[2019-09-04] MEDS ORDERED: ONDANSETRON 4 MG/2 ML VIAL IV PRN (01:35)
[2019-09-04 02:57] LABS: ABG Base Excess 5.4 MMOL/L (-2.5-2.5); ABG HCO3 28.6 MMOL/L (20-26); ABG Oxygen Saturation 44.1 % (95-100); ABG TCO2 34.9 MMOL/L (23-27); Allen Test Positive; Pt O2 Delivery Device BIPAP
[2019-09-04 03:00] LABS: ABG PH 7.189 (7.35-7.45)
[2019-09-04] MEDS ORDERED: ALBUTEROL/IPRATROPIUM 3 ML NEB RESP TX SCH (03:00)
[2019-09-04] MEDS: LACTULOSE 320 GM/480 ML BOTTLE RECTAL SCH ×3 (05:30→10:43)
[2019-09-04] MEDS ORDERED: PIPERACILLIN/TAZOBACTAM 3,375 MG in SODIUM CHLORIDE 0.9% 100 ML IV SCH ×2 (06:00→14:00)
[2019-09-04] MEDS ORDERED: LEVALBUTEROL 1.25 MG/3 ML NEB RESP TX SCH (07:00)
[2019-09-04] MEDS ORDERED: INSULIN REGULAR 100 UNIT/ML SUBCUT SCH (07:30)
[2019-09-04 07:48] LABS: Albumin 3.6 G/DL (3.4-5.0); Bilirubin,Total 1.4 MG/DL (0.2-1.0); Calcium 8.8 MG/DL (8.5-10.1); Osmolality,Calculated 316.1 MOS/KG (273-304)
[2019-09-04 07:48] LABS: Basophils % 0.1 % (0.0-0.8); Hematocrit 32.6 VOL% (35.7-47.0); Immature Granulocytes % 1.1 %; Immature Granulocytes Absolute 0.14 #; Lymphocytes # 0.3 10*3/uL (1.4-4.0); Lymphocytes % 2.6 % (21.3-54.2); Mean Corpuscular HGB Conc 26.1 GM/DL (32-36); Mean Corpuscular Volume 90.6 FL (87-102); Mean Platelet Volume 11.8 FL (9.6-12.0); Monocytes % 6.8 % (1.7-12.7); NRBC # 0.13 10*3/uL; Neutrophils % 89.4 % (38.7-73.9); Platelet Count 110 T/CUMM (130-400); Red Cell Distribution Width 15.8 % (9.3-17.3); White Blood Count 12.7 T/CUMM (4-12)
[2019-09-04 07:49] LABS: Hemoglobin 8.5 GM/DL (12.0-16.0)
[2019-09-04 07:53] LABS: Lymphocytes 5 % (20-55); Segmented Neutrophils 92 % (50-85); Total Cells Counted 100
[2019-09-04 07:54] LABS: Hypochromasia 1+; Microcytosis 1+; Ovalocytes Slight; Platelet Estimate Adequate; Polychromasia Slight; Stomatocytes Slight
[2019-09-04] MEDS ORDERED: ENOXAPARIN 40 MG/0.4 ML SYRINGE SUBCUT SCH (09:00)
[2019-09-04] MEDS ORDERED: LORazepam 2 MG/1 ML VIAL IV PRN ×2 (10:42→15:16)
[2019-09-04] MEDS ORDERED: fentaNYL 25 MCG/HR PATCH TRANSDERM SCH (11:00)
[2019-09-04 12:26] LABS: ABG Base Excess 11.5 MMOL/L (-2.5-2.5); ABG HCO3 35.3 MMOL/L (20-26); ABG PH 7.254 (7.35-7.45); ABG TCO2 39.4 MMOL/L (23-27)
[2019-09-04] MEDS ORDERED: DEXTROSE 5% NACL 0.22% 1,000 ML IV SCH (12:30)
[2019-09-04 12:37] LABS: ABG PCO2 93.8 MM HG (35-48)
[2019-09-04] MEDS ORDERED: HALOPERIDOL 5 MG/ML AMP IM PRN (15:18)
[2019-09-04] MEDS: methylPREDNISolone SOD SUC 40 MG/1 ML VIAL IV SCH ×2 (15:35→23:26)
[2019-09-04] MEDS: ENOXAPARIN 100 MG/ML SYRINGE SUBCUT SCH (15:35)
[2019-09-04 16:07] LABS: Apearance,Urine CLEAR (Clear); Bacteria,Urine Occasional /HPF (Few); Bilirubin,Urine Negative (Negative); Blood, Urine Negative (Negative); Glucose,Urine (UA) 150 mg/dL (Negative); Hyaline Casts,Urine 9 /LPF (0-3); Ketones,Urine 5 mg/dL (Negative); Mucus,Urine Occasional /LPF (Occasional); Nitrite,Urine Negative (Negative); Protein,Urine 30 MG/DL; RBC,Urine 2 /HPF (0-4); Squamous Epithelial Cell,Urine Occasional /HPF (0-10); Urine Color Yellow (Yellow); Urine Specific Gravity 1.026 (1.001-1.035); WBC,Urine 3 /HPF (0-6)
[2019-09-04] MEDS: ALBUTEROL/IPRATROPIUM 3 ML NEB RESP TX SCH (19:40)
[2019-09-04] MEDS: GABAPENTIN 100 MG CAPSULE PO SCH (20:08)
[2019-09-04] MEDS: carvediloL 25 MG TABLET PO SCH (20:08)
[2019-09-05] MEDS: ALBUTEROL/IPRATROPIUM 3 ML NEB RESP TX SCH ×2 (00:40→08:03)
[2019-09-05] MEDS: ENOXAPARIN 100 MG/ML SYRINGE SUBCUT SCH (04:57)
[2019-09-05 06:15] LABS: INR 1.6; PT Patient Result 17.6 SECS (9.6-12.2)
[2019-09-05 06:28] LABS: Basophils % 0.1 % (0.0-0.8); Hematocrit 31.1 VOL% (35.7-47.0); Hemoglobin 8.2 GM/DL (12.0-16.0); Immature Granulocytes % 0.7 %; Lymphocytes # 0.2 10*3/uL (1.4-4.0); Lymphocytes % 1.3 % (21.3-54.2); Mean Corpuscular HGB Conc 26.4 GM/DL (32-36); Mean Corpuscular Volume 92.3 FL (87-102); Mean Platelet Volume 12.4 FL (9.6-12.0); Monocytes % 3.6 % (1.7-12.7); NRBC # 0.19 10*3/uL; Neutrophils % 94.3 % (38.7-73.9); Platelet Count 101 T/CUMM (130-400); Red Blood Count 3.37 MC/CUMM (3.8-5.5); White Blood Count 13.8 T/CUMM (4-12)
[2019-09-05 06:36] LABS: Lymphocytes 5 % (20-55); Segmented Neutrophils 95 % (50-85); Total Cells Counted 100
[2019-09-05 06:37] LABS: Anisocytosis 1+
[2019-09-05 06:38] LABS: Alanine Aminotransferase 818 U/L (13-56); Albumin 3.5 G/DL (3.4-5.0); Alkaline Phosphatase 109 U/L (45-117); Aspartate Amino Transferase 506 U/L (0-37); Blood Urea Nitrogen 58 MG/DL (7-18); Calcium 9.1 MG/DL (8.5-10.1); Estimated Glom Filtration Rate 65 ML/MIN; Glucose 315 MG/DL (74-106); Hypochromasia Slight; Osmolality,Calculated 332.4 MOS/KG (273-304); Platelet Estimate Adequate; Total Protein 5.9 G/DL (6.4-8.3)
[2019-09-05] MEDS: methylPREDNISolone SOD SUC 40 MG/1 ML VIAL IV SCH (08:09)
[2019-09-05 08:29] VITALS: BP 124/60
[2019-09-05] MEDS ORDERED: cefTRIAXone 1,000 MG in SYRINGE 1 EACH IV SCH (09:00)
[2019-09-05] MEDS ORDERED: CLOPIDOGREL 75 MG TABLET PO SCH (09:00)
[2019-09-05] MEDS ORDERED: DEXTROSE 5% 1,000 ML IV SCH (09:30)
[2019-09-05] MEDS ORDERED: dilTIAZem Drip 125 MG/125 ML PREMIX IV SCH (10:00)
[2019-09-05] MEDS: carvediloL 25 MG TABLET PO SCH (10:41)
[2019-09-05] MEDS: GABAPENTIN 100 MG CAPSULE PO SCH (10:41)
[2019-09-05 11:04] LABS: ABG Base Excess 8.5 MMOL/L (-2.5-2.5); ABG HCO3 31.6 MMOL/L (20-26); ABG Oxygen Saturation 53.8 % (95-100); ABG PH 7.317 (7.35-7.45); ABG TCO2 34.6 MMOL/L (23-27)
[2019-09-05 11:06] LABS: ABG PCO2 71.9 MM HG (35-48); ABG PO2 32.7 MM HG (80-95)
== END 2019-09-05 11:57 | disposition expired ==
LOC: N.5E 09-04 01:15 → SUATTDRO 09-04 01:15
PROVIDERS: ADMIT Internal Medicine; ATTEND Internal Medicine